=== PATIENT | male | born 1960 | race Caucasian/White ===

== ENCOUNTER 2016-08-21 13:56 | Emergency (ER) | payer MEDICAID, OTHER ==
--- NOTE | 2016-08-21 14:03 | ER Document Report ---
ED Medical Screen (RME) - General Stated Complaint: BODY PAIN Time seen by provider: 14:00 Notes: Patient complains of fever, headache, body aches since yesterday. Patient denies nausea or vomiting. Patient is HIV positive. Patient also has a history of COPD. I have greeted and performed a rapid initial assessment of this patient. A comprehensive ED assessment and evaluation of the patient, analysis of test results and completion of the medical decision making process will be conducted by additional ED providers. TRAVEL OUTSIDE OF THE [place] IN LAST 30 DAYS: No - Related Data Allergies/Adverse Reactions: Penicillins Adverse Reaction (Verified 05/21/15 07:58) convulsions Past Medical History Pulmonary Medical History: Reports: Hx Asthma, Hx Bronchitis Past Surgical History: Reports: Hx Abdominal Surgery - left side hernia 2009 - Immunizations Hx Diphtheria, Pertussis, Tetanus Vaccination: Yes
[2016-08-21 14:55] LABS: ABSOLUTE BASOPHILS # (AUTO) 0.1 10^3/uL (0.0-0.2); ABSOLUTE LYMPHOCYTES (AUTO) 1.9 10^3/uL (0.5-4.7); BASOPHILS % (AUTO) 1.3 % (0-2); HEMATOCRIT 43.1 % (37.9-51.0); HEMOGLOBIN 14.8 g/dL (13.5-17.0); HGB HCT DIFFERENCE 1.3; LYMPHOCYTES % (AUTO) 27.1 % (13-45); MEAN CORPUSCULAR HEMOGLOBIN 31.3 pg (27.0-33.4); MEAN CORPUSCULAR HGB CONC 34.4 g/dL (32.0-36.0); MEAN CORPUSCULAR VOLUME 91 fl (80-97); MONOCYTES % (AUTO) 14.5 % (3-13); RED BLOOD COUNT 4.75 10^6/uL (4.35-5.55); RED CELL DISTRIBUTION WIDTH 13.7 % (11.5-14.0); SEGMENTED NEUTROPHILS % (AUTO) 57.1 % (42-78)
[2016-08-21 15:01] LABS: APPEARANCE,URINE SLIGHTLY-CLOUDY; BILIRUBIN,URINE NEGATIVE (NEGATIVE); GLUCOSE, URINE NEGATIVE (NEGATIVE); KETONES,URINE TRACE mg/dL (NEGATIVE); LEUKOCYTE ESTERASE,URINE NEGATIVE (NEGATIVE); NITRITE,URINE NEGATIVE (NEGATIVE); PROTEIN,URINE NEGATIVE (NEGATIVE); URINE SPECIFIC GRAVITY 1.023; UROBILINOGEN,URINE NEGATIVE mg/dL (<2.0)
[2016-08-21 15:21] LABS: ALANINE AMINOTRANSFERASE 32 U/L (21-72); ALBUMIN 4.5 g/dL (3.5-5.0); ALKALINE PHOSPHATASE 58 U/L (38-126); ANION GAP 11 (5-19); ASPARTATE AMINO TRANSFERASE 29 U/L (17-59); BILIRUBIN,TOTAL 0.4 mg/dL (0.2-1.3); BLOOD UREA NITROGEN 15 mg/dL (7-20); CALCIUM 9.4 mg/dL (8.4-10.2); CARBON DIOXIDE 22 mmol/L (22-30); CHLORIDE 103 mmol/L (98-107); CREATININE RESULT 1.05 mg/dL (0.52-1.25); GLUCOSE 91 mg/dL (75-110); POTASSIUM 4.6 mmol/L (3.6-5.0); SODIUM 135.8 mmol/L (137-145)
[2016-08-21] MEDS ORDERED: BENZONATATE 100 MG CAPSULE PO ONE (16:02)
--- NOTE | 2016-08-21 16:02 | ER Document Report ---
ED General - General Chief Complaint: Flu Symptoms Stated Complaint: BODY PAIN Mode of Arrival: Ambulatory Information source: Patient Notes: Patient presents to the emergency department with complaints of headache, subjective fever, body aches nonproductive cough. He reports symptoms started yesterday. He reports he also recently learned he is HIV positive, jul 06, 2016. He does not know his CD4 count. He reports he has not been able to follow up with the clinic in [place] because he does not have $400. He reports these symptoms started last night. No other family members ill. Denies vomiting diarrhea. TRAVEL OUTSIDE OF THE [place] IN LAST 30 DAYS: No - HPI Onset: Yesterday Onset/Duration: Sudden Quality of pain: Achy Pain Level: 4 Associated symptoms: Body/muscle aches, Nonproductive cough, Fever Exacerbated by: Denies Relieved by: Denies Similar symptoms previously: No Recently seen / treated by doctor: No - Related Data Allergies/Adverse Reactions: Penicillins Adverse Reaction (Verified 05/21/15 07:58) convulsions Past Medical History - General Information source: Patient - Social History Smoking Status: Current Every Day Smoker Cigarette use (# per day): Yes - one pack per day Chew tobacco use (# tins/day): No Smoking Education Provided: Yes Frequency of alcohol use: None Drug Abuse: None Lives with: Family Family History: Reviewed & Not Pertinent Patient has suicidal ideation: No Patient has homicidal ideation: No Pulmonary Medical History: Reports: Hx Asthma, Hx Bronchitis, Hx COPD Renal/ Medical History: Denies: Hx Peritoneal Dialysis Infectious Medical History: Reports: Hx HIV Past Surgical History: Reports: Hx Abdominal Surgery - left side hernia 2009 - Immunizations Hx Diphtheria, Pertussis, Tetanus Vaccination: Yes Review of Systems - Review of Systems Notes: Review HPI for review of systems., All other systems negative Physical Exam - Vital signs Vitals: Temp Pulse Resp BP Pulse Ox 99.7 F 92 28 H 117/64 94 08/21/16 14:01 08/21/16 14:01 08/21/16 14:01 08/21/16 14:01 08/21/16 14:01 - Notes Notes: PHYSICAL EXAMINATION: GENERAL: Well-appearing and in no acute distress nontoxic looking, nontoxic looking, appears older than his stated age HEAD: Atraumatic, normocephalic. EYES: Pupils equal round extraocular movements intact, sclera anicteric, conjunctiva are normal. ENT: nares patent, oropharynx clear without exudates. Moist mucous membranes. NECK: Normal range of motion, supple without lymphadenopathy LUNGS: CTAB and equal. No wheezes rales or rhonchi. occasional cough noted, no product HEART: Regular rate and rhythm without murmurs ABDOMEN: Soft, no tenderness. No guarding, no rebound BACK: C/O pain when sitting up and coughing. He reports he has always had back pain, born with scoliosis, cough is irritating it more EXTREMITIES: Normal range of motion, no c/o pain NEUROLOGICAL: Cranial nerves grossly intact. Normal sensory/motor PSYCH: Normal mood, normal affect. SKIN: Warm, Dry, normal turgor Course - Re-evaluation Re-evalutation: 08/21/16 I have consulted the attending provider dr izquierdo per [facility] guidelines. No additional orders noted. Pt instructed on trent vasquez, on importance of monitoring his temp, fu with dr valles tuesday. - Vital Signs Vital signs: Temp Pulse Resp BP Pulse Ox 99.7 F 85 20 112/68 94 08/21/16 14:01 08/21/16 16:07 08/21/16 16:07 08/21/16 16:07 08/21/16 16:07 - Laboratory Result Diagrams: 08/21/16 14:17 08/21/16 14:17 Laboratory results interpreted by me: 08/21/16 08/21/16 08/21/16 14:17 14:17 14:17 Monocytes % 14.5 H Sodium 135.8 L Urine Ketones TRACE H - Diagnostic Test Radiology reviewed: Image reviewed, Reports reviewed - IMPRESSION: NO SIGNIFICANT RADIOGRAPHIC FINDING IN THE CHEST Discharge - Discharge Clinical Impression: Cough, Body aches Headache Qualifiers: Headache type: unspecified Headache chronicity pattern: acute headache Intractability: not intractable Qualified Code(s): R51 - Headache Fever Qualifiers: Fever type: unspecified Qualified Code(s): R50.9 - Fever, unspecified Condition: Stable Disposition: HOME, SELF-CARE Instructions: Acetaminophen, Fever ([facility]), Tessalon Perles ([facility]) Additional Instructions: *You have been evaluated for flu like symptoms today, cough, fever, headache *Increase fluid intake *Take medication as prescribed for cough *Monitor your temperature, take Tylenol as indicated *Follow up with Dr Valles within 3 days for recheck *Return to ED for worsening condition, changes, needs Prescriptions: Benzonatate [Tessalon Perles 100 mg Capsule] 100 mg PO ASDIR PRN #40 capsule PRN Reason: Forms: Smoking Cessation Education Referrals: PHOEBE SALGUERO MD [Primary Care Provider] - Follow up as needed
[2016-08-21 16:08] VITALS: BP 112/68
== END 2016-08-21 16:12 | disposition home or self-care (01) ==
LOC: ER 13:56
DX: M79.1 Myalgia (principal); R50.9 Fever, unspecified; R51 Headache; R05 Cough; J44.9 Chronic obstructive pulmonary disease, unspecified; J45.909 Unspecified asthma, uncomplicated; F17.210 Nicotine dependence, cigarettes, uncomplicated; M41.9 Scoliosis, unspecified; M54.9 Dorsalgia, unspecified; Z21 Asymptomatic human immunodeficiency virus [HIV] infection status
CPT/HCPCS: 36415; 71020; 80053; 81001; 85025; 87804; 99283

== ENCOUNTER 2017-08-18 15:53 | Emergency (ER) | payer OTHER ==
[2017-08-18] MEDS ORDERED: IBUPROFEN 800 MG TABLET PO ONE (16:27)
--- NOTE | 2017-08-18 17:08 | ER Document Report ---
ED Extremity Problem, Lower - General Chief Complaint: Foot Injury Stated Complaint: LEFT 2ND DIGIT TOE INJURY Time Seen by Provider: 08/18/17 16:26 Mode of Arrival: Wheelchair Information source: Patient Notes: 57-year-old male presents to ED for complaint of pain to the second toe on the left foot. He states he dropped a glass rack on his toe this morning at work he works at [employer]. Toe is bruised and swollen and very tender to touch. TRAVEL OUTSIDE OF THE [place] IN LAST 30 DAYS: No - HPI Patient complains to provider of: Injury, Pain, Swelling Location: 2nd Toe Occurred: This morning Where: Public place, Work Quality of pain: Sharp, Throbbing Severity: Severe Pain Level: 5 Context: Crush Recent injury: Yes Associated symptoms: Painful ambulation Exacerbated by: Movement, Walking Relieved by: Elevation, Rest - Related Data Allergies/Adverse Reactions: Penicillins Adverse Reaction (Verified 05/21/15 07:58) convulsions Past Medical History - General Information source: Patient - Social History Smoking Status: Current Every Day Smoker Cigarette use (# per day): Yes - Pack per day Chew tobacco use (# tins/day): No Smoking Education Provided: Yes - 4 minutes Frequency of alcohol use: None Drug Abuse: None Occupation: Cook at [employer] Lives with: Family Family History: Arthritis, CAD, COPD, DM, Hyperlipidemia, Hypertension, Malignancy. denies: CVA, Thyroid Disfunction Patient has suicidal ideation: No Patient has homicidal ideation: No - Past Medical History Cardiac Medical History: Reports: None Pulmonary Medical History: Reports: Hx Asthma, Hx Bronchitis, Hx COPD EENT Medical History: Reports: None Neurological Medical History: Reports: None Endocrine Medical History: Reports: None Renal/ Medical History: Reports: None Malignancy Medical History: Reports None GI Medical History: Reports: None Musculoskeltal Medical History: Reports Hx Musculoskeletal Trauma Skin Medical History: Reports None Psychiatric Medical History: Reports: None Traumatic Medical History: Reports: None Infectious Medical History: Reports: Hx HIV Past Surgical History: Reports: Hx Inguinal Hernia - Bilateral inguinal hernia - Immunizations Immunizations up to date: Yes Hx Diphtheria, Pertussis, Tetanus Vaccination: Yes Review of Systems - Review of Systems Constitutional: No symptoms reported EENT: No symptoms reported Cardiovascular: No symptoms reported Respiratory: No symptoms reported Gastrointestinal: No symptoms reported Genitourinary: No symptoms reported Male Genitourinary: No symptoms reported Musculoskeletal: Other - left 2nd to bruised swelling painful crushed Skin: Change in color - eccymosis to 2nd toe left foot Hematologic/Lymphatic: No symptoms reported Neurological/Psychological: No symptoms reported -: Yes All other systems reviewed and negative Physical Exam - Vital signs Vitals: Temp Pulse Resp BP Pulse Ox 99.1 F 92 16 115/64 90 L 08/18/17 16:00 08/18/17 16:00 08/18/17 16:00 08/18/17 16:00 08/18/17 16:00 Interpretation: Normal - General General appearance: Appears well, Alert - HEENT Head: Normocephalic, Atraumatic Eyes: Normal Pupils: PERRL - Respiratory Respiratory status: No respiratory distress Chest status: Nontender Breath sounds: Normal Chest palpation: Normal - Cardiovascular Rhythm: Regular Heart sounds: Normal auscultation Murmur: No - Abdominal Inspection: Normal Distension: No distension Bowel sounds: Normal Tenderness: Nontender Organomegaly: No organomegaly - Back Back: Normal, Nontender - Extremities General upper extremity: Normal inspection, Nontender, Normal color, Normal ROM , Normal temperature General lower extremity: Normal temperature. No: Pascale's sign Foot: Tender - left 2nd toe, Ecchymosis - left 2nd toe, Edema - left 2nd toe, Metatarsal compress. pain - left 2nd toe, No evidence of FB, Unable to bear weight - Due to pain in left 2nd toe. No: Abrasion, Deformity, Instability, Laceration, Nail injury, Navicular tenderness, Puncture wound, Tender 5th metatarsal - Neurological Neuro grossly intact: Yes Cognition: Normal Orientation: AAOx4 Estefani Coma Scale Eye Opening: Spontaneous [place] Coma Scale Verbal: Oriented Estefani Coma Scale Motor: Obeys Commands [place] Coma Scale Total: 15 Speech: Normal Motor strength normal: LUE, RUE, LLE, RLE Sensory: Normal - Psychological Associated symptoms: Normal affect, Normal mood - Skin Skin Temperature: Warm Skin Moisture: Dry Skin Color: Normal, Ecchymosis - left 2nd toe Course - Re-evaluation Re-evalutation: 08/18/17 17:09 Patient treated with elevation ice and ibuprofen while waiting for the x-ray reports. 08/18/17 17:35 X-ray shows a nondisplaced fracture of the proximal phalanx of the second toe on the left foot. I have moo taped his toes and placed in a postop shoe and given crutches. He will also be given a Latrobe dispense pack for his pain. He will be instructed to take ibuprofen for lesser pain and Latrobe for the more severe pain. Patient was instructed to follow-up with orthopedics. - Vital Signs Vital signs: Temp Pulse Resp BP Pulse Ox 98.8 F 72 18 111/62 95 08/18/17 17:58 08/18/17 17:58 08/18/17 17:58 08/18/17 17:58 08/18/17 17:58 - Diagnostic Test Radiology reviewed: Image reviewed, Reports reviewed Procedures - Immobilization Left Foot Time completed: 18:05 Pre-Proc Neuro Vasc Exam: Normal Immobilizer type: Crutches, Post-op shoe, Other - Moo tape toe Performed by: PCT Post-Proc Neuro Vasc Exam: Normal Alignment checked and good: Yes Discharge - Discharge Clinical Impression: Fracture of second toe, left, closed Qualifiers: Encounter type: initial encounter Qualified Code(s): S92.502A - Displaced unspecified fracture of left lesser toe(s), initial encounter for closed fracture Condition: Stable Disposition: HOME, SELF-CARE Additional Instructions: Fractured Toe You have fractured your toe. Although this fracture doesn't need a cast or splint, emergency evaluation was needed to assess the straightness of the bones and joints. Reduction ("setting") is necessary for toe fractures which are crooked or twisted. A toe fracture will heal in about three weeks. Usually, the fractured toe is taped to the next toe. The second toe acts as a moving splint to protect the broken one. Ice and elevation help during the first 48 hours. You may need crutches at first if walking is painful. When you begin walking, be careful NOT to do things that hurt. If weight bearing is not comfortable within a few days, you may require a special shoe, walking boot, or cast. Call the doctor or return at once if severe swelling, severe pain, or numbness develop in the toe, or if you suspect you may have re-injured it. Post-Op Shoe You are to use a "post-op shoe," sometimes also called a "bunnion shoe." This shoe helps protect minor fractures, sprains, and other injuries of the toes or foot. You may remove the shoe for bathing. Walk carefully. If you're feeling pain, put less weight on the foot, take smaller steps, or use a cane. If you have a new injury, you may need to use crutches for the first couple of days. If pain still prevents walking after a few days, contact the doctor. If there's unexpected pain in your foot, if blisters or sore spots develop , or if the shoe is physically coming apart, return at once. Remember that you' re welcome to come in at any time to have the fit of the shoe checked and adjusted. USE OF CRUTCHES: The doctor has recommended that you not bear weight at this time. You will need to use crutches. Adjust the crutches so the tops come to about two inches under the armpit while you are standing upright. Use your hands -- not your armpits -- to support your weight. To get into a chair, support yourself with one crutch on the injured side. Hold the chair with the other hand, then lower yourself while putting all your weight on the good leg. Going up stairs is `good leg up, step up, then bring up crutches and bad leg.' Down stairs is `bad leg and crutches down, then bring good leg down.' If you develop numbness or swelling in an arm or hand, you are using the crutches incorrectly. Return if you are having any problems with the crutches. ICE & ELEVATION: Apply ice packs frequently against the painful area. Many different schedules are recommended, such as "20 minutes on, 20 minutes off" or "one hour ice, two hours rest." If you need to work, you may need to go longer between ice treatments. You should plan to have the area ice packed AT LEAST one- fourth of the time. The ice should be applied over the wrap, tape, or splint, or over a layer of cloth -- not directly against the skin. Some ice bags have a built-in cloth and can be put directly on the skin. Your injured part should be elevated as much as possible over the next 48 hours. Try to keep the injury above the level of the heart. Avoid use of the injured area. Elevation and rest will decrease the swelling. USE OF [id number] IBUPROFEN: Ibuprofen (Advil, Nuprin, Medipren, Motrin IB) is a medication for fever and pain control. In addition, it has anti- inflammatory effects which may be beneficial, especially in the treatment of injuries. It's best to take ibuprofen with food. Persons with ulcer disease or allergy to aspirin should notify their physician of this before taking ibuprofen. Ibuprofen can be given every four to six hours, for a total of four doses daily. Age Pain or fever dose Antiinflammatory dose 6-8 yr 200 mg (1 tab) 200 mg (1 tab) 9-11 yr 200 mg (1 tab) 200-400 mg (1-2 tab) 11-14 yr 200-400 mg (1-2 tab) 400 mg (2 tab) 15-adult 400 mg (2 tab) 600 mg (3 tab) ORAL NARCOTIC MEDICATION: You have been given a Latrobe dispense pack for pain control. This medication is a narcotic. It's best taken with food, as nausea can result if taken on an empty stomach. Don't operate machinery or drive within six hours of taking this medication. Do not combine this medicine with alcohol, or with any medication which can cause sedation (such as cold tablets or sleeping pills) unless you get permission from the physician. Narcotics tend to cause constipation. If possible, drink plenty of fluids and eat a diet high in fiber and fruits. Please be aware that prescription narcotics also have the potential for abuse. People become addicted to these medications because of the general sense of wellbeing that they induce. This feeling along with a significant reduction in tension, anxiety, and aggression provides a stimulating seductive quality to these drugs. Once your pain is under control, we encourage you to discard your unused narcotics. Please take your Latrobe for severe pain but take your ibuprofen for lesser pains. Elevation and ice should help your pain and reduce your requirement for pain medication FOLLOW-UP CARE: If you have been referred to a physician for follow-up care, call the physician s office for an appointment as you were instructed or within the next two days. If you experience worsening or a significant change in your symptoms, notify the physician immediately or return to the Emergency Department at any time for re-evaluation. Forms: Smoking Cessation Education, Return to Work Referrals: RITA ANTHONY MD [ACTIVE STAFF] - Follow up as needed
--- NOTE | 2017-08-18 17:23 | RADIOLOGY REPORT (SQ) ---
EXAM DESCRIPTION: FOOT LEFT COMPLETE COMPLETED DATE/TIME: 08/18/2017 5:09 pm REASON FOR STUDY: injured 2nd toe COMPARISON: None. NUMBER OF VIEWS: Three views. TECHNIQUE: AP, lateral and oblique radiographic images acquired of the left foot. LIMITATIONS: None. FINDINGS: MINERALIZATION: Normal. BONES: A lateral view there is suggestion of fracture involving the distal aspect of the second proxi mal phalanx however this is not clearly visualized on the other images. No other fractures are ident ified. Small calcaneal spur at the insertion the plantar aponeurosis. JOINTS: No effusions. SOFT TISSUES: No soft tissue swelling. No foreign body. OTHER: No other significant finding. IMPRESSION: Possible nondisplaced fracture involving the second proximal phalanx seen only on the la teral view. TECHNICAL DOCUMENTATION: JOB ID: [id number] [employer]- All Rights Reserved
[2017-08-18 17:59] VITALS: BP 111/62
[2017-08-18] MEDS ORDERED: HYDROCODONE/ACETAMINOPHEN 5-325 MG (6 TAB/ER DISP) PO PRN (18:04)
== END 2017-08-18 18:10 | disposition home or self-care (01) ==
LOC: ER 15:53
DX: S92.502A Displaced unspecified fracture of left lesser toe(s), initial encounter for closed fracture (principal); M79.672 Pain in left foot; M79.89 Other specified soft tissue disorders; W22.8XXA Striking against or struck by other objects, initial encounter; F17.210 Nicotine dependence, cigarettes, uncomplicated
CPT/HCPCS: 99283; 99406

== ENCOUNTER → 2017-11-17 | Outpatient (CLI) | payer OTHER ==
[2017-11-17 12:42] LABS: ABSOLUTE BASOPHILS # (AUTO) 0.1 10^3/uL (0.0-0.2); ABSOLUTE EOSINOPHILS # (AUTO) 0.1 10^3/uL (0.0-0.6); ABSOLUTE LYMPHOCYTES (AUTO) 2.9 10^3/uL (0.5-4.7); ABSOLUTE MONOCYTES (AUTO) 0.7 10^3/uL (0.1-1.4); BASOPHILS % (AUTO) 1.4 % (0-2); EOSINOPHILS % (AUTO) 1.6 % (0-6); HEMATOCRIT 43.3 % (37.9-51.0); HEMOGLOBIN 14.6 g/dL (13.5-17.0); LYMPHOCYTES % (AUTO) 36.9 % (13-45); MEAN CORPUSCULAR HEMOGLOBIN 33.5 pg (27.0-33.4); MEAN CORPUSCULAR HGB CONC 33.7 g/dL (32.0-36.0); MEAN CORPUSCULAR VOLUME 100 fl (80-97); MONOCYTES % (AUTO) 8.4 % (3-13); PLATELET COUNT 314 10^3/uL (150-450); RED BLOOD COUNT 4.35 10^6/uL (4.35-5.55); RED CELL DISTRIBUTION WIDTH 13.8 % (11.5-14.0); SEGMENTED NEUTROPHILS % (AUTO) 51.7 % (42-78); TOTAL CELLS COUNTED % (AUTO) 100 %; WHITE BLOOD COUNT 7.8 10^3/uL (4.0-10.5)
[2017-11-17 13:02] LABS: ALANINE AMINOTRANSFERASE 20 U/L (21-72); ALBUMIN 4.1 g/dL (3.5-5.0); ALKALINE PHOSPHATASE 48 U/L (38-126); ANION GAP 9 (5-19); ASPARTATE AMINO TRANSFERASE 22 U/L (17-59); BILIRUBIN,DIRECT 0.3 mg/dL (0.0-0.4); BILIRUBIN,TOTAL 0.3 mg/dL (0.2-1.3); BLOOD UREA NITROGEN 12 mg/dL (7-20); CALCIUM 9.8 mg/dL (8.4-10.2); CARBON DIOXIDE 28 mmol/L (22-30); CHLORIDE 106 mmol/L (98-107); GLUCOSE 90 mg/dL (75-110); POTASSIUM 4.4 mmol/L (3.6-5.0); SODIUM 143.1 mmol/L (137-145); TOTAL PROTEIN 6.6 g/dL (6.3-8.2)
== END ==
LOC: CCC 11:39
DX: Z00.00 Encounter for general adult medical examination without abnormal findings (principal)
CPT/HCPCS: 36415; 80053; 83036; 84443; 85025

== ENCOUNTER 2018-01-13 17:37 | Emergency (ER) | payer SELFPAY ==
[2018-01-13] MEDS ORDERED: IPRATROPIUM/ALBUTEROL 0.5-2.5 MG/3 ML AMPUL NEB ONE (18:07)
[2018-01-13] MEDS ORDERED: PREDNISONE 20 MG TABLET PO ONE (18:07)
--- NOTE | 2018-01-13 18:12 | ER Document Report ---
ED Medical Screen (RME) - General Chief Complaint: Chest Pain Stated Complaint: CHEST PAIN, SHORTNESS OF BREATH Time Seen by Provider: 01/13/18 18:00 Notes: RAPID MEDICAL EVALUATION DISCLOSURE I have seen this patient as part of a Rapid Medical Evaluation and, if applicable, placed any initially appropriate orders. The patient will be seen and fully evaluated, including a full history and physical exam, by a provider ( in Main ED or Fast Track) when a room becomes available. 57-year-old male PMH asthma here with complaints of shortness of breath chest tightness cough ongoing for the past 5-6 days. He has had progressively worsening symptoms and has been using his inhalers with minimal relief. He does not have a nebulizer machine at home. EXAM Mild end expiratory wheezes Moderate decrease in aeration throughout Mild accessory muscle use RRR TRAVEL OUTSIDE OF THE [place] IN LAST 30 DAYS: No - Related Data Allergies/Adverse Reactions: Penicillins Adverse Reaction (Verified 01/13/18 17:38) convulsions Past Medical History - Social History Chew tobacco use (# tins/day): No Frequency of alcohol use: None Drug Abuse: None Pulmonary Medical History: Reports: Hx Asthma, Hx Bronchitis, Hx COPD Renal/ Medical History: Denies: Hx Peritoneal Dialysis Musculoskeltal Medical History: Reports Hx Musculoskeletal Trauma Psychiatric Medical History: Reports: Hx Bipolar Disorder - and depression Infectious Medical History: Reports: Hx HIV Past Surgical History: Reports: Hx Abdominal Surgery - hernia repair x2, Hx Inguinal Hernia - Bilateral inguinal hernia - Immunizations Immunizations up to date: Yes Hx Diphtheria, Pertussis, Tetanus Vaccination: Yes Physical Exam - Vital signs Vitals: Temp Pulse Resp BP Pulse Ox 99.7 F 106 H 22 H 131/63 H 88 L 01/13/18 17:50 01/13/18 17:50 01/13/18 17:50 01/13/18 17:50 01/13/18 17:50 Course - Vital Signs Vital signs: Temp Pulse Resp BP Pulse Ox 99.7 F 106 H 22 H 131/63 H 88 L 01/13/18 17:50 01/13/18 17:50 01/13/18 17:50 01/13/18 17:50 01/13/18 17:50 Doctor's Discharge - Discharge Referrals: [facility] [Primary Care Provider] - Follow up as needed
--- NOTE | 2018-01-13 18:32 | RADIOLOGY REPORT (SQ) ---
EXAM DESCRIPTION: CHEST SINGLE VIEW COMPLETED DATE/TIME: 01/13/2018 6:22 pm REASON FOR STUDY: sob cp COMPARISON: 08/21/2016 EXAM PARAMETERS: NUMBER OF VIEWS: One view. TECHNIQUE: Single frontal radiographic view of the chest acquired. RADIATION DOSE: NA LIMITATIONS: None. FINDINGS: LUNGS AND PLEURA: The lungs are hyperexpanded. There is no infiltrate or effusion. There is no mass. MEDIASTINUM AND HILAR STRUCTURES: No masses. Contour normal. HEART AND VASCULAR STRUCTURES: Heart normal in size. Normal vasculature. BONES: No acute findings. HARDWARE: None in the chest. OTHER: No other significant finding. IMPRESSION: Chronic lung changes with no acute cardiopulmonary disease. TECHNICAL DOCUMENTATION: JOB ID: [id number] [employer]- All Rights Reserved Reading location - IP/workstation name: [email or web address]
[2018-01-13 18:35] LABS: HEMATOCRIT 39.1 % (37.9-51.0); HEMOGLOBIN 13.3 g/dL (13.5-17.0); MEAN CORPUSCULAR HEMOGLOBIN 33.2 pg (27.0-33.4); MEAN CORPUSCULAR VOLUME 98 fl (80-97); PLATELET COUNT 408 10^3/uL (150-450); RED CELL DISTRIBUTION WIDTH 13.7 % (11.5-14.0); WHITE BLOOD COUNT 17.5 10^3/uL (4.0-10.5)
[2018-01-13 18:48] LABS: ALANINE AMINOTRANSFERASE 28 U/L (21-72); ALBUMIN 3.8 g/dL (3.5-5.0); ALKALINE PHOSPHATASE 64 U/L (38-126); ANION GAP 10 (5-19); ASPARTATE AMINO TRANSFERASE 19 U/L (17-59); BILIRUBIN,DIRECT 0.3 mg/dL (0.0-0.4); BILIRUBIN,TOTAL 0.5 mg/dL (0.2-1.3); BLOOD UREA NITROGEN 12 mg/dL (7-20); CALCIUM 9.2 mg/dL (8.4-10.2); CARBON DIOXIDE 24 mmol/L (22-30); CHLORIDE 108 mmol/L (98-107); GLUCOSE 159 mg/dL (75-110); SODIUM 142.2 mmol/L (137-145); TOTAL PROTEIN 6.4 g/dL (6.3-8.2)
[2018-01-13 19:17] LABS: ABSOLUTE LYMPHOCYTES# (MANUAL) 1.8 10^3/uL (0.5-4.7); ABSOLUTE MONOCYTES # (MANUAL) 1.4 10^3/uL (0.1-1.4); ABSOLUTE NEUTROPHILS# (MANUAL) 14.4 10^3/uL (1.7-8.2); BAND NEUTROPHILS % (MANUAL) 1 % (3-5); BASOPHILS % (MANUAL) 0 % (0-2); EOSINOPHILS % (MANUAL) 0 % (0-6); LYMPHOCYTES % (MANUAL) 10 % (13-45); MONOCYTES % (MANUAL) 8 % (3-13); SEGMENTED NEUTROPHILS % (MAN) 81 % (42-78); TOTAL CELLS COUNTED 100
[2018-01-13 19:20] LABS: PLATELET CLUMPS PRESENT; PLATELET COMMENT ADEQUATE; POIKILOCYTOSIS 1+; POLYCHROMASIA SLIGHT; SCHISTOCYTES SLIGHT; TEAR DROP CELLS 1+; TOXIC GRANULATION SLIGHT; TOXIC VACUOLATION PRESENT
[2018-01-13 19:21] LABS: PLATELET LARGE PRESENT
[2018-01-13] MEDS ORDERED: NORMAL SALINE 1000 ML 1,000 ML IV ONE (19:46)
[2018-01-13] MEDS ORDERED: BENZONATATE 100 MG CAPSULE PO ONE (19:48)
--- NOTE | 2018-01-13 19:50 | ER Document Report ---
ED General - General Chief Complaint: Chest Pain Stated Complaint: CHEST PAIN, SHORTNESS OF BREATH Time Seen by Provider: 01/13/18 18:00 Notes: The patient is a 57-year-old male with a past medical history of HIV, hypertension, chronic tobacco abuse who presents with 5 days of shortness of breath, coughing and feeling like he is having an asthma exacerbation. The patient reports that he has been using his albuterol inhaler at home with minimal to no relief. He states that coughing worsens his symptoms. He states this feels similar to prior asthma exacerbations that he has had in the past. He has not seen his general doctor regarding today's concerns. He denies fever or constitutional symptoms. He denies any history of a low CD4 count, stating the last CD4 check was "normal" and that his viral load was undetectable. TRAVEL OUTSIDE OF THE [place] IN LAST 30 DAYS: No - Related Data Allergies/Adverse Reactions: Penicillins Adverse Reaction (Verified 01/13/18 17:38) convulsions Past Medical History - General Information source: Patient - Social History Smoking Status: Current Every Day Smoker Cigarette use (# per day): Yes - 1 pack/day Chew tobacco use (# tins/day): No Smoking Education Provided: Yes - Smoking cessation counseling was provided for 4 minutes at the bedside Frequency of alcohol use: None Drug Abuse: None Lives with: Spouse/Significant other Family History: Arthritis, CAD, COPD, DM, Hyperlipidemia, Hypertension, Malignancy. denies: CVA, Thyroid Disfunction Patient has suicidal ideation: No Patient has homicidal ideation: No Pulmonary Medical History: Reports: Hx Asthma, Hx Bronchitis, Hx COPD Renal/ Medical History: Denies: Hx Peritoneal Dialysis Musculoskeltal Medical History: Reports Hx Musculoskeletal Trauma Psychiatric Medical History: Reports: Hx Bipolar Disorder - and depression Infectious Medical History: Reports: Hx HIV Past Surgical History: Reports: Hx Abdominal Surgery - hernia repair x2, Hx Inguinal Hernia - Bilateral inguinal hernia - Immunizations Immunizations up to date: Yes Hx Diphtheria, Pertussis, Tetanus Vaccination: Yes Review of Systems - Review of Systems Notes: Constitutional: Negative for fever. HENT: Negative for sore throat. Eyes: Negative for visual changes. Cardiovascular: Negative for chest pain. Respiratory: Positive for cough and shortness of breath Gastrointestinal: Negative for abdominal pain, vomiting or diarrhea. Genitourinary: Negative for dysuria. Musculoskeletal: Negative for back pain. Skin: Negative for rash. Neurological: Negative for headaches, weakness or numbness. 10 point ROS negative except as marked above and in HPI. Physical Exam - Vital signs Vitals: Temp Pulse Resp BP Pulse Ox 99.7 F 106 H 22 H 131/63 H 88 L 01/13/18 17:50 01/13/18 17:50 01/13/18 17:50 01/13/18 17:50 01/13/18 17:50 Interpretation: Tachycardic, Hypoxic Notes: PHYSICAL EXAMINATION: GENERAL: Appears older than stated age but in no acute distress HEAD: Atraumatic, normocephalic. EYES: Pupils equal round and reactive to light, extraocular movements intact, sclera anicteric, conjunctiva are normal. ENT: nares patent, oropharynx clear without exudates. Moist mucous membranes. NECK: Normal range of motion, supple without lymphadenopathy LUNGS: Appropriate air movement throughout, no retractions or distress. Scattered rales throughout. No significant wheezing. HEART: Regular tachycardia without murmurs ABDOMEN: Soft, nontender, normoactive bowel sounds. No guarding, no rebound. No masses appreciated. EXTREMITIES: Normal range of motion, no pitting or edema. No cyanosis. NEUROLOGICAL: No focal neurological deficits. Moves all extremities spontaneously and on command. PSYCH: Normal mood, normal affect. SKIN: Warm, Dry, normal turgor, no rashes or lesions noted. Course - Re-evaluation Re-evalutation: 01/13/18 19:48 Patient presents with 5 days of progressively worsening cough, shortness of breath, as well as feeling generally unwell. In triage he was given several duo nebulizers without any significant improvement of his symptoms. Interestingly has lung examination does not show any wheezing, more consistent with crackles throughout. Chest x-ray shows what is described as chronic lung changes of the patient denies any known chronic lung history. The patient does have a known history of HIV although states that his viral load is undetectable and medicine 84 count was "completely normal". PCP pneumonia with therefore not make any sense in this context. His labs are notable for a leukocytosis, otherwise overall unremarkable. PE seems unlikely given clinical history although given his persistent tachycardia, hypoxemia, and absence of wheezing on examination I think it is appropriate to further evaluate this pathology and a CT of the chest can also assist in better clarification of findings on chest x -ray as the report is not consistent with the patient's history. 01/13/18 22:15 CTA of the chest does not show any evidence of an acute pulmonary embolus. The patient is now 94% on room air, 91-92% ambulating on room air. His heart rate has normalized. At this time point the clinical presentation appears overall most consistent with an acute COPD exacerbation likely secondary to a viral etiology as multiple family members have had a similar upper respiratory presentation with him the patient has been in contact. He overall feels much better. At this time will discharge with return precautions and follow-up recommendations. Verbal discharge instructions given a the bedside and opportunity for questions given. Medication warnings reviewed. Patient is in agreement with this plan and has verbalized understanding of return precautions and the need for primary care follow-up in the next 24-72 hours. - Vital Signs Vital signs: Temp Pulse Resp BP Pulse Ox 99.7 F 106 H 26 H 126/75 H 94 01/13/18 17:50 01/13/18 17:50 01/13/18 22:01 01/13/18 22:00 01/13/18 22:01 - Laboratory Result Diagrams: 01/13/18 18:11 01/13/18 18:11 Laboratory results interpreted by me: 01/13/18 01/13/18 01/13/18 18:11 18:11 21:15 WBC 17.5 H RBC 4.00 L Hgb 13.3 L MCV 98 H Seg Neuts % (Manual) 81 H Band Neutrophils % 1 L Lymphocytes % (Manual) 10 L Abs Neuts (Manual) 14.4 H VBG pH 7.45 H VBG pCO2 33.1 L Chloride 108 H Glucose 159 H - Diagnostic Test Radiology reviewed: Image reviewed, Reports reviewed Radiology results interpreted by me: 01/13/18 22:15 Chest x-ray: Interstitial scarring, no acute infiltrate Discharge - Discharge Clinical Impression: COPD exacerbation, Tobacco dependence Leukocytosis Qualifiers: Leukocytosis type: unspecified Qualified Code(s): D72.829 - Elevated white blood cell count, unspecified Acute bronchitis Qualifiers: Bronchitis organism: unspecified organism Qualified Code(s): J20.9 - Acute bronchitis, unspecified Condition: Good Disposition: HOME, SELF-CARE Additional Instructions: You were seen for a COPD exacerbation. Your symptoms improved with treatment here in the emergency department. However, it is very important that you return to the emergency department immediately if you began to have worsening difficulty breathing that does not respond to your normal home nebulizers. You are also being sent home on a five-day course of steroids that you should start taking tomorrow. Please also take the antibiotics as prescribed. Please also follow closely with your primary care physician. You should return to emergency department if you develop fever greater than 101, persistent cough, persistent vomiting, pass out, or any other symptoms that are concerning to you. Prescriptions: RX: Doxycycline Hyclate 100 mg PO BID #14 capsule RX: Prednisone [Deltasone 20 mg Tablet] 3 tab PO DAILY 5 Days tablet Referrals: [facility] [Primary Care Provider] - Follow up as needed
[2018-01-13 21:27] LABS: VENOUS BLOOD BASE EXCESS -0.9 mmol/L; VENOUS BLOOD HCO3 22.4 mmol/L (20-32); VENOUS BLOOD PCO2 33.1 mmHg (35-63); VENOUS BLOOD PH 7.45 (7.30-7.42)
--- NOTE | 2018-01-13 21:38 | RADIOLOGY REPORT (SQ) ---
EXAM DESCRIPTION: CTA CHEST COMPLETED DATE/TIME: 01/13/2018 9:24 pm REASON FOR STUDY: hypoxia, tachy, eval pe, atypical pneumonia COMPARISON: Chest radiograph TECHNIQUE: CT scan of the chest performed using helical scanning technique with dynamic intravenous contrast injection. Images reviewed with lung, soft tissue and bone windows. Reconstructed coronal and sagittal MPR images reviewed. Additional 3 dimensional post-processing performed to develop Maximal Intensity Projection images (LA P). All images stored on PACS. All CT scanners at this facility use dose modulation, iterative reconstruction, and/or weight based d osing when appropriate to reduce radiation dose to as low as reasonably achievable (ALARA). [facility]: Dose Right [facility]: CareDose [facility]: Dose Right [facility]: Teradose 4D [facility]: Technology [employer] (TUGG) CONTRAST TYPE AND DOSE: contrast/concentration: Isovue 370.00 mg/ml; Total Contrast Delivered: 48.0 ml; Total Saline Delivered: 74.0 ml Contrast bolus adequate for pulmonary arteries and aorta. RENAL FUNCTION: GFR > 60. RADIATION DOSE: CT Rad equipment meets quality standard of care and radiation dose reduction techniq ues were employed. CTDIvol: 9.9 - 14.3 mGy. DLP: 616 mGy-cm. . LIMITATIONS: None. FINDINGS: LUNGS AND PLEURA: Emphysematous changes. Apical and lower zone scarring. No effusions. AORTA AND GREAT VESSELS: No aneurysm. Contrast bolus not optimized for the aorta. HEART: No pericardial effusion. No significant coronary artery calcifications. PULMONARY ARTERIES: No emboli visualized in the main pulmonary arteries or the segmental branches. HILAR AND MEDIASTINAL STRUCTURES: No identified masses or abnormal nodes. HARDWARE: None in the chest. UPPER ABDOMEN: No significant findings. Limited exam. THYROID AND OTHER SOFT TISSUES: No masses. No adenopathy. BONES: No acute or significant finding. 3D MIPS: Confirm above findings. OTHER: No other significant finding. IMPRESSION: No pulmonary emboli. Chronic parenchymal changes. COMMENT: Quality ID # [id number]: Final reports with documentation of one or more dose reduction techniques (e.g., Automated exposure control, adjustment of the mA and/or kV according to patient size, use of iterative reconstruction technique) TECHNICAL DOCUMENTATION: JOB ID: [id number] [employer]- All Rights Reserved Reading location - IP/workstation name: [email or web address]
[2018-01-13 22:08] VITALS: BP 126/75
--- NOTE | 2018-01-14 00:20 | EKG REPORT ---
SEVERITY:- OTHERWISE NORMAL ECG - SINUS TACHYCARDIA : Confirmed by: Tracie Huitron MD 14-Jan-2018 00:20:06
[2018-01-16 14:38] LABS: % CD 4 POS LYMPH 21.1 % (30.8-58.5); % CD 8 POS LYMPH 29.1 % (12.0-35.5); ABSOLUTE CD 4 HELPER 211 /uL (359-1519); ABSOLUTE CD 8 SUPPRESSOR 291 /uL (109-897); CD BASOPHILS 0 % (Not Estab.); CD EOSINOPHILS 0 % (Not Estab.); CD MONOCYTES 7 % (Not Estab.); CD NEUTROPHILS 87 % (Not Estab.); CD4/CD8 RATIO 0.73 (0.92-3.72); MCH 33.4 pg (26.6-33.0); MCHC 31.7 g/dL (31.5-35.7); MCV 105 fL (79-97); MONOCYTES(ABSOLUTE) 1.1 x10E3/uL (0.1-0.9); NEUTROPHILS(ABSOLUTE) 13.9 x10E3/uL (1.4-7.0); PLATELETS 397 x10E3/uL (150-379); RBC 3.59 x10E6/uL (4.14-5.80); RDW 14.8 % (12.3-15.4)
== END 2018-01-13 22:42 | disposition home or self-care (01) ==
LOC: ER 17:37
DX: J44.1 Chronic obstructive pulmonary disease with (acute) exacerbation (principal); D72.829 Elevated white blood cell count, unspecified; J20.9 Acute bronchitis, unspecified; R07.9 Chest pain, unspecified; F17.210 Nicotine dependence, cigarettes, uncomplicated; B20 Human immunodeficiency virus [HIV] disease; Z88.0 Allergy status to penicillin
CPT/HCPCS: 93005; 99406; 94640; 99285; 96360; 86360; 36415; 85025; 80053; 84484; 82803; 83880; 71045; 71275; 93010; J7512; J7030; J7620

== ENCOUNTER 2018-01-15 12:11 | Inpatient (IN) | payer SELFPAY ==
--- NOTE | 2018-01-15 12:52 | ER Document Report ---
ED Medical Screen (RME) - General Chief Complaint: Shortness Of Breath Stated Complaint: SHORTNESS OF BREATH Time Seen by Provider: 01/15/18 12:47 Mode of Arrival: Wheelchair Information source: Patient, Relative Notes: 57 yr old male hx of hiv copd emphysema presents with complaints of sob, wheezing cough I have greeted and performed a rapid initial assessment of this patient. A comprehensive ED assessment and evaluation of the patient, analysis of test results and completion of the medical decision making process will be conducted by additional ED providers. PHYSICAL EXAMINATION: GENERAL: Well-appearing, well-nourished and in no acute distress. pt is on oxygen HEAD: Atraumatic, normocephalic. EYES: Pupils equal round extraocular movements intact, conjunctiva are normal. ENT: Nares patent NECK: Normal range of motion LUNGS: No respiratory distress Musculoskeletal: Normal range of motion NEUROLOGICAL: Normal speech, normal gait. PSYCH: Normal mood, normal affect. SKIN: Warm, Dry, normal turgor, no rashes or lesions noted. TRAVEL OUTSIDE OF THE [place] IN LAST 30 DAYS: No - Related Data Allergies/Adverse Reactions: Penicillins Adverse Reaction (Verified 01/13/18 17:38) convulsions Past Medical History Pulmonary Medical History: Reports: Hx Asthma, Hx Bronchitis, Hx COPD Renal/ Medical History: Denies: Hx Peritoneal Dialysis Musculoskeltal Medical History: Reports Hx Musculoskeletal Trauma Psychiatric Medical History: Reports: Hx Bipolar Disorder - and depression Infectious Medical History: Reports: Hx HIV Past Surgical History: Reports: Hx Abdominal Surgery - hernia repair x2, Hx Inguinal Hernia - Bilateral inguinal hernia - Immunizations Immunizations up to date: Yes Hx Diphtheria, Pertussis, Tetanus Vaccination: Yes Physical Exam - Vital signs Vitals: Temp Pulse Resp BP Pulse Ox 98.9 F 72 20 118/61 96 01/15/18 12:26 01/15/18 12:26 01/15/18 12:26 01/15/18 12:26 01/15/18 12:26 Course - Vital Signs Vital signs: Temp Pulse Resp BP Pulse Ox 98.9 F 72 20 118/61 96 01/15/18 12:31 01/15/18 12:31 01/15/18 12:31 01/15/18 12:31 01/15/18 12:31 Doctor's Discharge - Discharge Referrals: [facility] [Primary Care Provider] - Follow up as needed
[2018-01-15 13:39] LABS: HEMATOCRIT 39.2 % (37.9-51.0); HEMOGLOBIN 13.2 g/dL (13.5-17.0); MEAN CORPUSCULAR HEMOGLOBIN 33.5 pg (27.0-33.4); MEAN CORPUSCULAR HGB CONC 33.8 g/dL (32.0-36.0); MEAN CORPUSCULAR VOLUME 99 fl (80-97); PLATELET COUNT 401 10^3/uL (150-450); RED BLOOD COUNT 3.96 10^6/uL (4.35-5.55); WHITE BLOOD COUNT 15.1 10^3/uL (4.0-10.5)
[2018-01-15 13:50] LABS: APPEARANCE,URINE CLEAR; BILIRUBIN,URINE NEGATIVE (NEGATIVE); COLOR,URINE YELLOW; GLUCOSE, URINE NEGATIVE (NEGATIVE); KETONES,URINE NEGATIVE (NEGATIVE); LEUKOCYTE ESTERASE,URINE NEGATIVE (NEGATIVE); NITRITE,URINE NEGATIVE (NEGATIVE); PROTEIN,URINE NEGATIVE (NEGATIVE); URINE SPECIFIC GRAVITY 1.015
[2018-01-15 13:55] LABS: ALANINE AMINOTRANSFERASE 20 U/L (21-72); ALBUMIN 3.7 g/dL (3.5-5.0); ALKALINE PHOSPHATASE 62 U/L (38-126); ANION GAP 12 (5-19); ASPARTATE AMINO TRANSFERASE 19 U/L (17-59); BILIRUBIN,DIRECT 0.5 mg/dL (0.0-0.4); BILIRUBIN,TOTAL 0.5 mg/dL (0.2-1.3); BLOOD UREA NITROGEN 15 mg/dL (7-20); CALCIUM 9.9 mg/dL (8.4-10.2); CARBON DIOXIDE 24 mmol/L (22-30); CHLORIDE 109 mmol/L (98-107); GLUCOSE 132 mg/dL (75-110); POTASSIUM 4.7 mmol/L (3.6-5.0); SODIUM 145.4 mmol/L (137-145); TOTAL PROTEIN 6.4 g/dL (6.3-8.2)
[2018-01-15 14:03] LABS: ABSOLUTE LYMPHOCYTES# (MANUAL) 0.2 10^3/uL (0.5-4.7); ABSOLUTE MONOCYTES # (MANUAL) 0.6 10^3/uL (0.1-1.4); ABSOLUTE NEUTROPHILS# (MANUAL) 14.3 10^3/uL (1.7-8.2); BASOPHILS % (MANUAL) 0 % (0-2); EOSINOPHILS % (MANUAL) 0 % (0-6); LYMPHOCYTES % (MANUAL) 1 % (13-45); MONOCYTES % (MANUAL) 4 % (3-13); PLATELET CLUMPS PRESENT; PLATELET COMMENT ADEQUATE; RBC MORPHOLOGY COMMENT NORMO-CYTIC/CHROMIC; SEGMENTED NEUTROPHILS % (MAN) 95 % (42-78); TOTAL CELLS COUNTED 100
[2018-01-15] MEDS ORDERED: ALBUTEROL SULFATE 0.083% NEB 2.5 MG/3 ML AMPUL NEB ONE (14:07)
[2018-01-15] MEDS ORDERED: IPRATROPIUM BROMIDE 0.02% NEB 0.5 MG/2.5 ML AMPUL NEB PRN (14:08)
[2018-01-15 14:11] LABS: ARTERIAL BLOOD BASE EXCESS 1.5 mmol/L; ARTERIAL BLOOD H2CO3 1.07 mmol/L (1.05-1.35); ARTERIAL BLOOD HCO3 24.9 mmol/L (20-26); ARTERIAL BLOOD O2 SATURATION 98.3 % (94-98); ARTERIAL BLOOD PCO2 35.5 mmHg (35-45); ARTERIAL BLOOD PH 7.46 (7.35-7.45); ARTERIAL BLOOD PO2 111.5 mmHg (80-100)
[2018-01-15 14:12] LABS: ARTERIAL BLOOD FIO2 2
--- NOTE | 2018-01-15 14:12 | RADIOLOGY REPORT (SQ) ---
EXAM DESCRIPTION: CHEST SINGLE VIEW COMPLETED DATE/TIME: 01/15/2018 1:45 pm REASON FOR STUDY: HIV, copd , sob COMPARISON: Chest x-ray and CT chest 01/13/2018. EXAM PARAMETERS: NUMBER OF VIEWS: One view. TECHNIQUE: 2 frontal radiographic views of the chest acquired. RADIATION DOSE: NA LIMITATIONS: None. FINDINGS: LUNGS AND PLEURA: No consolidation, pneumothorax or pleural effusion. Hyperlucent lungs a re suggestive of emphysema. MEDIASTINUM AND HILAR STRUCTURES: No masses. Contour normal. HEART AND VASCULAR STRUCTURES: Heart normal in size. Normal vasculature. BONES: No acute findings. HARDWARE: None in the chest. IMPRESSION: No acute radiographic finding in the chest. Emphysema. TECHNICAL DOCUMENTATION: JOB ID: [id number] [employer]- All Rights Reserved Reading location - IP/workstation name: [email or web address]
--- NOTE | 2018-01-15 14:18 | ER Document Report ---
ED Respiratory Problem - General Mode of Arrival: Wheelchair Information source: Patient TRAVEL OUTSIDE OF THE [place] IN LAST 30 DAYS: No <SCOOTER KIMBROUGH - Last Filed: 01/15/18 14:29> <LAVONNE NGUYEN - Last Filed: 01/18/18 18:44> - General Chief Complaint: Shortness Of Breath Stated Complaint: SHORTNESS OF BREATH Time Seen by Provider: 01/15/18 12:47 Notes: Patient is a 57-year-old male with HIV that presents to the emergency department today with complaints of shortness of breath. Patient was seen here 2 days ago and "diagnosed with emphysema" and was started on doxycycline and prednisone. Patient states today when leaving [facility] he felt "febrile" and "sweaty" and had increasing shortness of breath. (SCOOTER KIMBROUGH) - Related Data Allergies/Adverse Reactions: Penicillins Adverse Reaction (Verified 01/13/18 17:38) convulsions Past Medical History - General Information source: Patient, Relative - Social History Smoking Status: Former Smoker Cigarette use (# per day): No Chew tobacco use (# tins/day): No Frequency of alcohol use: None Drug Abuse: None Lives with: Family Family History: Arthritis, CAD, COPD, DM, Hyperlipidemia, Hypertension, Malignancy Patient has suicidal ideation: No Patient has homicidal ideation: No Pulmonary Medical History: Reports: Hx Asthma, Hx Bronchitis, Hx COPD Musculoskeltal Medical History: Reports Hx Musculoskeletal Trauma Psychiatric Medical History: Reports: Hx Bipolar Disorder - and depression Infectious Medical History: Reports: Hx HIV Past Surgical History: Reports: Hx Abdominal Surgery - hernia repair x2, Hx Inguinal Hernia - Bilateral inguinal hernia - Immunizations Immunizations up to date: Yes Hx Diphtheria, Pertussis, Tetanus Vaccination: Yes <SCOOTER KIMBROUGH - Last Filed: 01/15/18 14:29> Review of Systems - Review of Systems Constitutional: See HPI, Fever - subjective EENT: No symptoms reported Cardiovascular: No symptoms reported Respiratory: See HPI, Short of breath Gastrointestinal: No symptoms reported Genitourinary: No symptoms reported Male Genitourinary: No symptoms reported Musculoskeletal: No symptoms reported Skin: No symptoms reported Hematologic/Lymphatic: No symptoms reported Neurological/Psychological: No symptoms reported -: Yes All other systems reviewed and negative <SCOOTER KIMBROUGH - Last Filed: 01/15/18 14:29> Physical Exam <SCOOTER KIMBROUGH - Last Filed: 01/15/18 14:29> <LAVONNE NGUYEN - Last Filed: 01/18/18 18:44> - Vital signs Vitals: Temp Pulse Resp BP Pulse Ox 98.9 F 72 20 118/61 96 01/15/18 12:26 01/15/18 12:26 01/15/18 12:26 01/15/18 12:26 01/15/18 12:26 - Notes Notes: Physical Exam: General: Alert, appears well. HEENT: Normocephalic. Atraumatic. PERRL. Extraocular movements intact. Oropharynx clear. Neck: Supple. Non-tender. Respiratory: No respiratory distress. Minimal wheezing throughout. Saturating at 99% on room air. Cardiovascular: Regular rate and rhythm. Abdominal: Normal Inspection. Non-tender. No distension. Normal Bowel Sounds. Back: Non-tender. No deformity or step off. Extremities: Moves all four extremities. Upper extremities: Normal inspection. Normal ROM. Lower extremities: Normal inspection. No edema. Normal ROM. Neurological: Normal cognition. AAOx4. Normal speech. Psychological: Normal affect. Normal Mood. Skin: Warm. Dry. Normal color. (SCOOTER KIMBROUGH) Course - Laboratory Result Diagrams: 01/15/18 13:13 01/15/18 13:13 <SCOOTER KIMBROUGH - Last Filed: 01/15/18 14:29> - Laboratory Result Diagrams: 01/17/18 05:22 01/15/18 13:13 - Diagnostic Test Radiology reviewed: Image reviewed - NAD - EKG Interpretation by Vt EKG shows normal: Sinus rhythm Rate: Normal Rhythm: NSR <LAVONNE NGUYEN - Last Filed: 01/18/18 18:44> - Re-evaluation Re-evalutation: 01/15/18 14:46 Patient found to have an absolute lymphocytic count of 200 compared to 1803 days ago. Will be admitted for further workup and observation. (LAVONNE NGUYEN) - Vital Signs Vital signs: Temp Pulse Resp BP Pulse Ox 98.3 F 65 12 124/66 99 01/17/18 13:13 01/17/18 13:13 01/17/18 13:13 01/17/18 13:13 01/17/18 13:13 - Laboratory Laboratory results interpreted by me: 01/15/18 01/15/18 01/15/18 13:13 13:13 13:31 WBC 15.1 H RBC 3.96 L Hgb 13.2 L MCV 99 H MCH 33.5 H Seg Neuts % (Manual) 95 H Lymphocytes % (Manual) 1 L Abs Neuts (Manual) 14.3 H Abs Lymphs (Manual) 0.2 L ABG pH ABG pO2 ABG O2 Saturation Sodium 145.4 H Chloride 109 H Glucose 132 H Direct Bilirubin 0.5 H ALT 20 L Urine Urobilinogen 2.0 H 01/15/18 13:57 WBC RBC Hgb MCV MCH Seg Neuts % (Manual) Lymphocytes % (Manual) Abs Neuts (Manual) Abs Lymphs (Manual) ABG pH 7.46 H ABG pO2 111.5 H ABG O2 Saturation 98.3 H Sodium Chloride Glucose Direct Bilirubin ALT Urine Urobilinogen Discharge <SCOOTER KIMBROUGH - Last Filed: 01/15/18 14:29> - Discharge Admitting Provider: [facility] Unit Admitted: Telemetry <LAVONNE NGUYEN - Last Filed: 01/18/18 18:44> - Discharge Condition: Fair Disposition: ADMITTED INPATIENT Scribe Attestation: 01/18/18 18:44 I personally performed the services described documentation, reviewed and edited the documentation which was dictated to describe my presence, and it accurately records my words and actions. (LAVONNE NGUYEN) Scribe Documentation - Scribe Written by Scribe:: Eufemia Montenegro, 01/15/2018 1430 acting as scribe for :: Arthur <SCOOTER KIMBROUGH - Last Filed: 01/15/18 14:29>
[2018-01-15] MEDS ORDERED: ALBUTEROL SULFATE 0.083% NEB 2.5 MG/3 ML AMPUL NEB PRN (15:25)
[2018-01-15] MEDS ORDERED: ONDANSETRON HCL INJ/PF 4 MG/2 ML SDV IV PRN (15:35)
[2018-01-15] MEDS ORDERED: ACETAMINOPHEN 650 MG SUPP.RECT PR PRN (15:35)
[2018-01-15] MEDS ORDERED: ONDANSETRON 4 MG TAB.RAPDIS PO PRN (15:35)
[2018-01-15 16:27] LABS: URINE AMPHETAMINES SCREEN NEGATIVE; URINE BARBITURATES SCREEN NEGATIVE; URINE BENZODIAZEPINES SCREEN NEGATIVE; URINE COCAINE SCREEN NEGATIVE; URINE MARIJUANA (THC) SCREEN NEGATIVE; URINE METHADONE SCREEN NEGATIVE; URINE PHENCYCLIDINE SCREEN NEGATIVE
[2018-01-15] MEDS: IPRATROPIUM/ALBUTEROL 0.5-2.5 MG/3 ML AMPUL NEB SCH ×2 (16:31→20:02)
--- NOTE | 2018-01-15 16:37 | PDOC H&P ---
History of Present Illness Admission Date/PCP: 01/15/18 15:27 [facility] Patient complains of: Dyspnea, cough, fever History of Present Illness: ISABELLE TALAMANTES is a 57 year old male with HIV, Bipolar disorder, insomnia Presented to the ER on 01/13 and again today with fever, dyspnea and cough with brownish expectoration which started approximately 10 days ago. He smokes one pack per day since the age of 8. When he was here 2 days ago he was given a prescription for doxycycline and p.o. prednisone. He returned due to lack of improvement in his symptoms. The patient requests to be a DO NOT RESUSCITATE, DO NOT INTUBATE. Past Medical History Pulmonary Medical History: Reports: Asthma, Bronchitis, Chronic Obstructive Pulmonary Disease (COPD) Psychiatric Medical History: Reports: Bipolar Disorder - and depression Infectious Medical History: Reports: HIV Social History Information Source: Patient Lives with: Family Smoking Status: Current Every Day Smoker Frequency of Alcohol Use: None Drugs: None - Advance Directive Resuscitation Status: Do Not Resuscitate Family History Family History: Arthritis, CAD, COPD, DM, Hyperlipidemia, Hypertension, Malignancy Parental Family History Reviewed: Yes Children Family History Reviewed: Yes Sibling(s) Family History Reviewed.: Yes Medication/Allergy Home Medications: Darunavir/Cobicistat [Prezcobix 800 mg-150 mg Tablet] 1 tab PO DAILY 01/13/18 Doxycycline Hyclate 100 mg PO BID #14 capsule 01/13/18 Emtricitabine/Tenofov Alafenam [Descovy 200-25 mg Tablet] 1 tab PO DAILY Prednisone [Deltasone 20 mg Tablet] 3 tab PO DAILY 5 Days tablet 01/13/18 Lamotrigine [Lamictal] 50 mg PO DAILY 01/15/18 Allergies/Adverse Reactions: Penicillins Adverse Reaction (Verified 01/13/18 17:38) convulsions Review of Systems Constitutional: PRESENT: fever(s) Eyes: ABSENT: visual disturbances Ears: ABSENT: hearing changes Nose, Mouth, and Throat: ABSENT: sore throat Cardiovascular: ABSENT: edema, orthropnea Respiratory: PRESENT: cough, dyspnea, sputum. ABSENT: hemoptysis Gastrointestinal: ABSENT: abdominal pain, diarrhea, hematochezia, vomiting Genitourinary: ABSENT: dysuria Musculoskeletal: ABSENT: joint swelling Integumentary: ABSENT: pruritus Neurological: ABSENT: focal weakness Psychiatric: PRESENT: anxiety. ABSENT: hallucinations Endocrine: ABSENT: heat intolerance Hematologic/Lymphatic: ABSENT: easy bleeding Allergic/Immunologic: ABSENT: seasonal rhinorrhea Physical Exam Vital Signs: Temp Pulse Resp BP Pulse Ox 98.9 F 72 20 124/78 98 01/15/18 12:31 01/15/18 12:31 01/15/18 16:01 01/15/18 16:01 01/15/18 16:01 General appearance: PRESENT: thin Head exam: PRESENT: normocephalic Eye exam: PRESENT: PERRLA. ABSENT: scleral icterus Ear exam: PRESENT: normal external ear exam Mouth exam: PRESENT: moist Teeth exam: PRESENT: edentulous Neck exam: ABSENT: tracheal deviation Respiratory exam: PRESENT: accessory muscle use, rhonchi, symmetrical, wheezes Cardiovascular exam: PRESENT: RRR GI/Abdominal exam: PRESENT: normal bowel sounds, soft. ABSENT: tenderness Rectal exam: PRESENT: deferred Gentrourinary exam: ABSENT: indwelling catheter Extremities exam: ABSENT: pedal edema Musculoskeletal exam: PRESENT: normal inspection Neurological exam: PRESENT: alert, awake, oriented to person, oriented to place , oriented to time, oriented to situation Psychiatric exam: PRESENT: anxious Skin exam: ABSENT: petechiae Results Impressions: Chest X-Ray 01/15/18 12:51 IMPRESSION: No acute radiographic finding in the chest. Emphysema. Assessment & Plan - Diagnosis (1) HIV (human immunodeficiency virus infection) Is this a current diagnosis for this admission?: Yes Plan: Continue outpatient medications. Check CD4 count and viral load. (2) Acute bronchitis Is this a current diagnosis for this admission?: Yes Plan: Antibiotics. Check sputum cultures. (3) COPD exacerbation Is this a current diagnosis for this admission?: Yes Plan: Supplemental oxygen, neb treatments, steroids. Check sputum culture. (4) Tobacco dependence Is this a current diagnosis for this admission?: Yes Plan: He plans to quit. Declines nicotine patch. (5) Insomnia Is this a current diagnosis for this admission?: Yes Plan: Ambien as needed - Time Time Spent: Greater than 70 Minutes - Inpatient Certification Based on my medical assessment, after consideration of the patient's comorbidities, presenting symptoms, or acuity I expect that the services needed warrant INPATIENT care.: Yes I certify that my determination is in accordance with my understanding of Medicare's requirements for reasonable and necessary INPATIENT services [42 CFR 412.3e].: Yes Medical Necessity: Failure to Improve With Outpatient Therapy, Significant Comorbidiites Make Outpatient Treatment Too Risky, Risk of Complication if Not Cared For in Hospital
[2018-01-15] MEDS ORDERED: METHYLPREDNISOLONE INJ 40 MG/1 ML SDV IV ONE (16:45)
[2018-01-15] MEDS ORDERED: LANSOPRAZOLE 15 MG TAB.RAP.DR PO ONE (16:45)
[2018-01-15] MEDS ORDERED: DOXYCYCLINE HYCLATE 100 MG TABLET PO ONE (17:00)
[2018-01-15] MEDS ORDERED: DOXYCYCLINE HYCLATE 100 MG in DEXTROSE 5%-WATER 250 ML IV ONE (17:00)
[2018-01-15] MEDS ORDERED: DOXYCYCLINE HYCLATE INJ 100 MG VIAL ONE (18:45)
--- NOTE | 2018-01-15 19:09 | EKG REPORT ---
SEVERITY:- BORDERLINE ECG - SINUS RHYTHM BORDERLINE T ABNORMALITIES, ANT-LAT LEADS : Confirmed by: Tracie Huitron MD 15-Jan-2018 19:08:58
[2018-01-15] MEDS: METHYLPREDNISOLONE INJ 40 MG/1 ML SDV IV SCH (21:34)
[2018-01-15] MEDS: ZOLPIDEM TARTRATE 5 MG TABLET PO PRN (21:34)
[2018-01-16 05:20] LABS: ABSOLUTE LYMPHOCYTES (AUTO) 0.7 10^3/uL (0.5-4.7); ABSOLUTE MONOCYTES (AUTO) 0.3 10^3/uL (0.1-1.4); ABSOLUTE NEUT (AUTO) 11.7 10^3/uL (1.7-8.2); BASOPHILS % (AUTO) 0.1 % (0-2); HEMATOCRIT 36.5 % (37.9-51.0); HEMOGLOBIN 12.3 g/dL (13.5-17.0); LYMPHOCYTES % (AUTO) 5.8 % (13-45); MEAN CORPUSCULAR HEMOGLOBIN 33.6 pg (27.0-33.4); MEAN CORPUSCULAR HGB CONC 33.8 g/dL (32.0-36.0); MEAN CORPUSCULAR VOLUME 100 fl (80-97); MONOCYTES % (AUTO) 2.3 % (3-13); PLATELET COUNT 369 10^3/uL (150-450); RED BLOOD COUNT 3.66 10^6/uL (4.35-5.55); RED CELL DISTRIBUTION WIDTH 14.4 % (11.5-14.0); SEGMENTED NEUTROPHILS % (AUTO) 91.8 % (42-78); TOTAL CELLS COUNTED % (AUTO) 100 %; WHITE BLOOD COUNT 12.7 10^3/uL (4.0-10.5)
[2018-01-16] MEDS: LANSOPRAZOLE 15 MG TAB.RAP.DR PO SCH (06:29)
[2018-01-16] MEDS: METHYLPREDNISOLONE INJ 40 MG/1 ML SDV IV SCH ×3 (06:29→21:38)
[2018-01-16] MEDS: IPRATROPIUM/ALBUTEROL 0.5-2.5 MG/3 ML AMPUL NEB SCH ×4 (08:00→19:50)
[2018-01-16] MEDS ORDERED: ONDANSETRON 4 MG TAB.RAPDIS PO PRN (09:30)
[2018-01-16] MEDS ORDERED: ONDANSETRON HCL INJ/PF 4 MG/2 ML SDV IV PRN (09:30)
[2018-01-16] MEDS ORDERED: (PENDING PHARMACY ID) (Darunavir/Cobicistat [Prezcobix 800 Mg-150 Mg Tablet] 1 TAB) PO SCH (10:00)
[2018-01-16] MEDS ORDERED: (PENDING PHARMACY ID) (Emtricitabine/Tenofov Alafenam [Descovy 200-25 Mg Tablet] 1 TAB) PO SCH (10:00)
[2018-01-16] MEDS ORDERED: DOXYCYCLINE HYCLATE 100 MG TABLET PO SCH (10:00)
[2018-01-16] MEDS: DOXYCYCLINE HYCLATE 100 MG in DEXTROSE 5%-WATER 250 ML IV SCH ×2 (10:13→21:38)
[2018-01-16] MEDS: LAMOTRIGINE 100 MG TABLET PO SCH (10:13)
[2018-01-16] MEDS: LACTOBACILLUS ACIDOPHILUS 250 MG TAB PO SCH ×2 (10:13→18:02)
--- NOTE | 2018-01-16 14:30 | Progress Note ---
Provider Note Provider Note: ID Consult Note Asked to review patient's chart. Pt not seen or examined. Mr Bhandari is a 57 year old man who presented to [facility] yesterday 01/15/18 with fever, SOB and cough with brownish sputum that started 10 days ago and that did not improve with doxycycline and PO prednisone given when pt was seen in the ED for the same 2 days ago. Pt described symptoms as being similar to prior asthma exacerbations. He also reported that his HIV viral load was undetectable when it was last checked and that his CD4 count was not low. PMH includes bipolar disorder, HIV, COPD, and tobacco abuse. Exam was notable for rhonchi and wheezes. CTA chest on 01/13 showed apical and lower lung zone scarring, no effusions, no PE. CXR on 01/13 and 01/15 showed chronic scarring and emphysematous changes but no consolidation or pleural effusion. VS on presentation - no fever. On supplemental O2 1-2 L/min. Leukocytosis 17.5k on 01/13, WBC 15.1 on 01/15, today WBC 13k. One set of blood cultures negative x 24h. The other set is in process. Impression/recommendations: acute COPD exacerbation - increased dyspnea, cough and purulent sputum production, CXR without evidence of pneumonia - doxycycline is acceptable empirically; however, if there is concern that the patient has not shown improvement with doxycycline as an outpatient, consider switching to another agent, such as PO Augmentin 875/125 BID, azithromycin 500 mg PO daily or Levaquin - doubt this is an OI, such as PJP with normal CXR and brownish sputum and good HIV control that the patient reports, but verifying this with his outpatient provider may be helpful; checking CD4 count in setting of steroid use and acute illness may give a falsely low result - duration of therapy is typically 5-7 days for most patients; would not extend therapy on basis of HIV infection - smoking cessation HIV infection - according to the patient, CD4 count has not been low and HIV viral load was suppressed when it was last checked; he should continue his home medications and f/u with his HIV care provider as scheduled an outpatient Fabio Crouch MD [facility] Infectious Diseases, pager [phone]
--- NOTE | 2018-01-16 18:10 | PDOC PROGRESS REPORT ---
Subjective Progress Note for:: 01/16/18 Subjective:: Feels somewhat better today. Continues to cough. O2 sats on room air with ambulation 89%. Reason For Visit: COPD ACUTE BRONCHITIS Physical Exam Vital Signs: Temp Pulse Resp BP Pulse Ox 98.6 F 74 24 H 123/64 96 01/16/18 17:00 01/16/18 17:00 01/16/18 17:00 01/16/18 17:00 01/16/18 17:00 Intake & Output 01/15/18 01/16/18 01/17/18 06:59 06:59 06:59 Intake Total 477 Output Total 200 500 Balance -200 -23 Weight 61.2 kg General appearance: PRESENT: no acute distress Head exam: PRESENT: normocephalic Eye exam: ABSENT: scleral icterus Ear exam: PRESENT: normal external ear exam Mouth exam: PRESENT: moist Teeth exam: PRESENT: edentulous Neck exam: ABSENT: tracheal deviation Respiratory exam: PRESENT: symmetrical, unlabored, wheezes. ABSENT: crackles Cardiovascular exam: PRESENT: RRR GI/Abdominal exam: PRESENT: normal bowel sounds, soft. ABSENT: tenderness Rectal exam: PRESENT: deferred Gentrourinary exam: ABSENT: indwelling catheter Extremities exam: ABSENT: pedal edema Neurological exam: PRESENT: alert, awake, oriented to person, oriented to place , oriented to time, oriented to situation Psychiatric exam: PRESENT: anxious Results Laboratory Results: 01/16/18 04:15 01/16/18 04:15 WBC 12.7 H RBC 3.66 L Hgb 12.3 L Hct 36.5 L MCV 100 H MCH 33.6 H MCHC 33.8 RDW 14.4 H Plt Count 369 Seg Neutrophils % 91.8 H Lymphocytes % 5.8 L Monocytes % 2.3 L Eosinophils % 0.0 Basophils % 0.1 Absolute Neutrophils 11.7 H Absolute Lymphocytes 0.7 Absolute Monocytes 0.3 Absolute Eosinophils 0.0 Absolute Basophils 0.0 Impressions: Chest X-Ray 01/15/18 12:51 IMPRESSION: No acute radiographic finding in the chest. Emphysema. Assessment & Plan - Diagnosis (1) HIV (human immunodeficiency virus infection) Is this a current diagnosis for this admission?: Yes Plan: Continue outpatient medications. CD4 count and viral load pending. (2) Acute bronchitis Is this a current diagnosis for this admission?: Yes Plan: Day 2 of doxycycline. Check sputum cultures. (3) COPD exacerbation Is this a current diagnosis for this admission?: Yes Plan: Supplemental oxygen, neb treatments, steroids. Check sputum culture. (4) Tobacco dependence Is this a current diagnosis for this admission?: Yes Plan: He plans to quit. Declines nicotine patch. (5) Insomnia Is this a current diagnosis for this admission?: Yes Plan: Ambien as needed (6) Bipolar disorder Is this a current diagnosis for this admission?: Yes Plan: Lamictal. - Time Time Spent with patient: 25-34 minutes
[2018-01-16] MEDS: ZOLPIDEM TARTRATE 5 MG TABLET PO PRN (21:38)
[2018-01-17] MEDS: METHYLPREDNISOLONE INJ 40 MG/1 ML SDV IV SCH (06:01)
[2018-01-17] MEDS: LANSOPRAZOLE 15 MG TAB.RAP.DR PO SCH (06:01)
[2018-01-17 06:13] LABS: HEMATOCRIT 35.5 % (37.9-51.0); HEMOGLOBIN 12.1 g/dL (13.5-17.0); MEAN CORPUSCULAR HEMOGLOBIN 33.3 pg (27.0-33.4); MEAN CORPUSCULAR VOLUME 98 fl (80-97); PLATELET COUNT 349 10^3/uL (150-450); RED BLOOD COUNT 3.62 10^6/uL (4.35-5.55); RED CELL DISTRIBUTION WIDTH 13.9 % (11.5-14.0)
[2018-01-17 06:45] LABS: ABSOLUTE LYMPHOCYTES# (MANUAL) 1.5 10^3/uL (0.5-4.7); ABSOLUTE MONOCYTES # (MANUAL) 0.2 10^3/uL (0.1-1.4); ABSOLUTE NEUTROPHILS# (MANUAL) 15.3 10^3/uL (1.7-8.2); BASOPHILS % (MANUAL) 0 % (0-2); EOSINOPHILS % (MANUAL) 0 % (0-6); LYMPHOCYTES % (MANUAL) 9 % (13-45); MONOCYTES % (MANUAL) 1 % (3-13); SEGMENTED NEUTROPHILS % (MAN) 90 % (42-78); TOTAL CELLS COUNTED 100
[2018-01-17 06:46] LABS: ANISOCYTOSIS SLIGHT; PLATELET COMMENT ADEQUATE; TOXIC GRANULATION SLIGHT; TOXIC VACUOLATION PRESENT
[2018-01-17] MEDS: IPRATROPIUM/ALBUTEROL 0.5-2.5 MG/3 ML AMPUL NEB SCH ×2 (08:22→11:44)
[2018-01-17] MEDS: DOXYCYCLINE HYCLATE 100 MG in DEXTROSE 5%-WATER 250 ML IV SCH (09:50)
[2018-01-17] MEDS: LACTOBACILLUS ACIDOPHILUS 250 MG TAB PO SCH (09:51)
[2018-01-17] MEDS: LAMOTRIGINE 100 MG TABLET PO SCH (09:51)
--- NOTE | 2018-01-17 12:43 | PDOC DISCHARGE SUMMARY ---
General - Admit/Disc Date/PCP Admission Date/Primary Care Provider: 01/15/18 15:27 [facility] Discharge Date: 01/17/18 - Discharge Diagnosis (1) Acute bronchitis Is this a current diagnosis for this admission?: Yes (2) COPD exacerbation Is this a current diagnosis for this admission?: Yes (3) HIV (human immunodeficiency virus infection) Is this a current diagnosis for this admission?: Yes (4) Tobacco dependence Is this a current diagnosis for this admission?: Yes (5) Insomnia Is this a current diagnosis for this admission?: Yes (6) Bipolar disorder Is this a current diagnosis for this admission?: Yes - Additional Information Resuscitation Status: Do Not Resuscitate Discharge Diet: Regular Discharge Activity: Activity As Tolerated Prescriptions: Albuterol Sulfate [Ventolin 0.083% Neb 2.5 mg/3 mL Ampul] 2.5 mg NEB RTQ3HP PRN 30 Days #30 vial.neb PRN Reason: Budesonide/Formoterol Fumarate [Symbicort 160-4.5 Mcg Inhaler] 10.2 gm IH Q12H 30 Days #1 hfa.aer.ad Omeprazole Magnesium [Prilosec Otc] 20 mg PO DAILY 20 Days #20 tablet. Home Medications: Darunavir/Cobicistat [Prezcobix 800 mg-150 mg Tablet] 1 tab PO DAILY 01/13/18 Doxycycline Hyclate 100 mg PO BID #14 capsule 01/13/18 Emtricitabine/Tenofov Alafenam [Descovy 200-25 mg Tablet] 1 tab PO DAILY Prednisone [Deltasone 20 mg Tablet] 3 tab PO DAILY 5 Days tablet 01/13/18 Lamotrigine [Lamictal] 50 mg PO DAILY 01/15/18 Albuterol Sulfate [Ventolin 0.083% Neb 2.5 mg/3 mL Ampul] 2.5 mg NEB RTQ3HP PRN 30 Days #30 vial.neb 01/17/18 Budesonide/Formoterol Fumarate [Symbicort 160-4.5 Mcg Inhaler] 10.2 gm IH Q12H 30 Days #1 hfa.aer.ad 01/17/18 Doxycycline Hyclate [Vibramycin Inj 100 mg Vial] 100 mg IV Q12 vial 01/17/18 Omeprazole Magnesium [Prilosec Otc] 20 mg PO DAILY 20 Days #20 tablet. History of Present Illness Patient complains of: Cough shortness of breath. History of Present Illness: 57 year old male with HIV, Bipolar disorder, insomnia Presented to the ER on 01/13 and again today with fever, dyspnea and cough with brownish expectoration which started approximately 10 days ago. He smokes one pack per day since the age of 8. When he was here 2 days prior to admission he was given a prescription for doxycycline and p.o. prednisone. He returned due to lack of improvement in his symptoms. The patient requested to be a DO NOT RESUSCITATE, DO NOT INTUBATE. The patient was found to have COPD exacerbation and acute bronchitis. He was treated with antibiotics, no eye wound be be out of town going to [place] for 2 weeks at the end of the week and family there but somewhat on the steroids and neb treatments. He is doing better. His CD4 count is 211. Viral load is pending. Sats are in the 90s on room air at rest and with exertion. The patient has problems with snoring and gagging at night. He will need a sleep study as an outpatient. He is also to see a structural architect. Referral has been placed for Dr. Boyce. He is to continue Symbicort, albuterol rescue inhaler as needed. He was given a prescription for a nebulizer machine and albuterol nebs. The patient will complete a steroid taper and antibiotic course as an outpatient. He is determined to quit smoking. He is stable for discharge home. Hospital Course Hospital Course: As above Physical Exam Vital Signs: Temp Pulse Resp BP Pulse Ox 98.3 F 65 12 125/63 99 01/17/18 08:14 01/17/18 11:44 01/17/18 11:44 01/17/18 08:14 01/17/18 11:44 Intake & Output 01/16/18 01/17/18 01/18/18 06:59 06:59 06:59 Intake Total 1427 250 Output Total 200 1000 Balance -200 427 250 Weight 61.2 kg 74.3 kg General appearance: PRESENT: no acute distress, thin Head exam: PRESENT: normocephalic Teeth exam: PRESENT: edentulous Respiratory exam: PRESENT: decreased breath sounds, symmetrical, unlabored Neurological exam: PRESENT: alert, awake Results Laboratory Results: 01/17/18 05:22 01/17/18 05:22 WBC 17.0 H RBC 3.62 L Hgb 12.1 L Hct 35.5 L MCV 98 H MCH 33.3 MCHC 34.0 RDW 13.9 Plt Count 349 Seg Neutrophils % Not Reportable Lymphocytes % Not Reportable Monocytes % Not Reportable Eosinophils % Not Reportable Basophils % Not Reportable Absolute Neutrophils Not Reportable Absolute Lymphocytes Not Reportable Absolute Monocytes Not Reportable Absolute Eosinophils Not Reportable Absolute Basophils Not Reportable Impressions: Chest X-Ray 01/15/18 12:51 IMPRESSION: No acute radiographic finding in the chest. Emphysema. Qualifiers - * PATIENT BEING DISCHARGED WITH ANY OF THE FOLLOWING DIAGNOSIS: No Plan Time Spent: Greater than 30 Minutes
[2018-01-17 13:14] VITALS: BP 124/66
[2018-01-18 07:14] LABS: HIV-1 RNA PCR QUANT <20 copies/mL (.)
== END 2018-01-17 13:49 | disposition home or self-care (01) | DRG 192 ==
LOC: ER 12:11 → EH 15:27 → 4S 16:53
PROVIDERS: ADMIT Internal Medicine; ATTEND Internal Medicine
DX: J44.0 Chronic obstructive pulmonary disease with (acute) lower respiratory infection (principal); J43.9 Emphysema, unspecified; J20.9 Acute bronchitis, unspecified; Z21 Asymptomatic human immunodeficiency virus [HIV] infection status; F31.9 Bipolar disorder, unspecified; G47.00 Insomnia, unspecified; Z88.0 Allergy status to penicillin; Z87.891 Personal history of nicotine dependence; Z66 Do not resuscitate; Z82.49 Family history of ischemic heart disease and other diseases of the circulatory system
CPT/HCPCS: 36415; 71045; 80053; 80307; 81001; 82803; 83735; 83880; 85025; 87040; 87536; 93005; 93010; 94640; 99285; J2920; J3490; J7060; J7620

== ENCOUNTER 2018-09-23 17:20 | Emergency (ER) | payer SELFPAY ==
[2018-09-23] MEDS ORDERED: IPRATROPIUM/ALBUTEROL 0.5-2.5 MG/3 ML AMPUL NEB ONE ×2 (18:46→20:02)
--- NOTE | 2018-09-23 18:46 | ER Document Report ---
ED Medical Screen (RME) - General Chief Complaint: Shortness Of Breath Stated Complaint: DIFFICULTY BREATHING Time Seen by Provider: 09/23/18 18:44 Primary Care Provider: [facility] [Primary Care Provider] - Follow up as needed Mode of Arrival: Ambulatory Information source: Patient, Relative, [facility] Records Notes: 58-year-old male with COPD, HIV, bipolar disorder presents with complaint of 3 days of shortness of breath, chest pressure. Patient states shortness of breath and chest pressure are worse with exertion. Patient also reports a worsening productive cough and subjective fevers. Patient denies any recent hospitalizations. I have greeted and performed a rapid initial assessment of this patient. A comprehensive ED assessment and evaluation of the patient, analysis of test results and completion of medical decision making process we will be contacted by additional ED providers. PHYSICAL EXAMINATION: Vital signs reviewed GENERAL: Well-appearing, well-nourished and in no acute distress. LUNGS: No respiratory distress Musculoskeletal: Normal range of motion NEUROLOGICAL: Normal speech, normal gait. PSYCH: Normal mood, normal affect. SKIN: Warm, Dry, normal turgor, no rashes or lesions noted. TRAVEL OUTSIDE OF THE [place] IN LAST 30 DAYS: No - HPI Onset: Other Onset/Duration: Constant Quality of pain: Pressure Severity: Moderate Associated Symptoms: Chest pain, Cough (productive), Fever - Subjective, Shortness of breath Exacerbated by: Other - Activity Relieved by: Denies Similar symptoms previously: Yes Recently seen / treated by doctor: No - Related Data Smoking: Secondhand, Cigarettes Drug Abuse: None Allergies/Adverse Reactions: Penicillins Adverse Reaction (Verified 01/13/18 17:38) convulsions Past Medical History Pulmonary Medical History: Reports: Hx Asthma, Hx Bronchitis, Hx COPD Renal/ Medical History: Denies: Hx Peritoneal Dialysis Musculoskeltal Medical History: Reports Hx Musculoskeletal Trauma Psychiatric Medical History: Reports: Hx Bipolar Disorder - and depression Infectious Medical History: Reports: Hx HIV Past Surgical History: Reports: Hx Abdominal Surgery - hernia repair x2, Hx Inguinal Hernia - Bilateral inguinal hernia - Immunizations Immunizations up to date: Yes Hx Diphtheria, Pertussis, Tetanus Vaccination: Yes History of Influenza Vaccine for 04/2017 - 09/2017 Season: No Physical Exam - Vital signs Vitals: Temp Pulse Resp BP Pulse Ox 98.7 F 79 16 123/49 L 94 09/23/18 17:30 09/23/18 17:30 09/23/18 17:30 09/23/18 17:30 09/23/18 17:30 Course - Vital Signs Vital signs: Temp Pulse Resp BP Pulse Ox 98.7 F 79 16 123/49 L 94 09/23/18 17:30 09/23/18 17:30 09/23/18 17:30 09/23/18 17:30 09/23/18 17:30 Doctor's Discharge - Discharge Referrals: [facility] [Primary Care Provider] - Follow up as needed
--- NOTE | 2018-09-23 19:29 | RADIOLOGY REPORT (SQ) ---
EXAM DESCRIPTION: CHEST 2 VIEWS COMPLETED DATE/TIME: 09/23/2018 7:16 pm REASON FOR STUDY: Shortness of breath, chest pain COMPARISON: Chest x-ray 01/15/2018, CT angiogram chest 01/13/2018. EXAM PARAMETERS: NUMBER OF VIEWS: two views TECHNIQUE: Digital Frontal and Lateral radiographic views of the chest acquired. RADIATION DOSE: NA LIMITATIONS: none FINDINGS: LUNGS AND PLEURA: Airspace opacity at the right middle lobe. No pneumothorax or pleural e ffusion. MEDIASTINUM AND HILAR STRUCTURES: No masses or contour abnormalities. HEART AND VASCULAR STRUCTURES: Heart normal size. Mild central vascular congestion. BONES: No acute findings. HARDWARE: None in the chest. IMPRESSION: Mild central vascular congestion. Airspace opacity at the right middle lobe, may repres ent asymmetric pulmonary edema or pneumonia. TECHNICAL DOCUMENTATION: JOB ID: [id number] 2010 [employer]- All Rights Reserved Reading location - IP/workstation name: [email or web address]
[2018-09-23] MEDS ORDERED: METHYLPREDNISOLONE INJ 125 MG/2 ML SDV IV ONE (20:02)
[2018-09-23 20:18] LABS: ABSOLUTE LYMPHOCYTES (AUTO) 0.9 10^3/uL (0.5-4.7); ABSOLUTE MONOCYTES (AUTO) 0.6 10^3/uL (0.1-1.4); ABSOLUTE NEUT (AUTO) 10.5 10^3/uL (1.7-8.2); BASOPHILS % (AUTO) 0.1 % (0-2); HEMATOCRIT 34.7 % (37.9-51.0); HEMOGLOBIN 11.9 g/dL (13.5-17.0); LYMPHOCYTES % (AUTO) 7.5 % (13-45); MEAN CORPUSCULAR HGB CONC 34.4 g/dL (32.0-36.0); MEAN CORPUSCULAR VOLUME 99 fl (80-97); MONOCYTES % (AUTO) 5.2 % (3-13); PLATELET COUNT 279 10^3/uL (150-450); RED BLOOD COUNT 3.51 10^6/uL (4.35-5.55); SEGMENTED NEUTROPHILS % (AUTO) 87.2 % (42-78); TOTAL CELLS COUNTED % (AUTO) 100 %
[2018-09-23 20:36] LABS: ALANINE AMINOTRANSFERASE 93 U/L (21-72); ALBUMIN 3.7 g/dL (3.5-5.0); ALKALINE PHOSPHATASE 50 U/L (38-126); ANION GAP 8 (5-19); ASPARTATE AMINO TRANSFERASE 101 U/L (17-59); BILIRUBIN,DIRECT 0.2 mg/dL (0.0-0.4); BILIRUBIN,TOTAL 0.3 mg/dL (0.2-1.3); BLOOD UREA NITROGEN 15 mg/dL (7-20); CALCIUM 9.9 mg/dL (8.4-10.2); CARBON DIOXIDE 25 mmol/L (22-30); CHLORIDE 104 mmol/L (98-107); GLUCOSE 136 mg/dL (75-110); POTASSIUM 4.5 mmol/L (3.6-5.0); SODIUM 136.9 mmol/L (137-145); TOTAL PROTEIN 5.9 g/dL (6.3-8.2)
[2018-09-23] MEDS ORDERED: NORMAL SALINE 1000 ML 1,000 ML IV ONE (20:59)
[2018-09-23] MEDS ORDERED: CEFPODOXIME 200 MG TABLET PO ONE ×2 (21:44→22:14)
[2018-09-23] MEDS ORDERED: DOXYCYCLINE HYCLATE 100 MG TABLET PO ONE (21:44)
--- NOTE | 2018-09-23 21:44 | ER Document Report ---
ED Respiratory Problem - General Chief Complaint: Shortness Of Breath Stated Complaint: DIFFICULTY BREATHING Time Seen by Provider: 09/23/18 18:44 Primary Care Provider: [facility] [NO LOCAL MD] - Follow up as needed Mode of Arrival: Ambulatory Notes: Patient is a 58-year-old male presents to the emergency department with respiratory distress. Patient states he has also had a generalized cough and congestion and intermittent chills for the last 3 days. Patient states he does have a history of HIV but is unsure of when his last cell counts were taken. States he feels as though they were done in the last 6 months and states he remembers the doctor telling him they were "good." Patient is denying any nausea, vomiting, diarrhea, abdominal pain, chest pain. Past medical history: HIV, COPD, bipolar Medications: Remeron, Lamictal, Prezcobix, Descovy Allergies: Penicillin TRAVEL OUTSIDE OF THE [place] IN LAST 30 DAYS: No - Related Data Allergies/Adverse Reactions: Penicillins Adverse Reaction (Verified 01/13/18 17:38) convulsions Past Medical History - General Information source: Patient, Relative, [facility] Records - Social History Smoking Status: Current Every Day Smoker Chew tobacco use (# tins/day): No Frequency of alcohol use: None Drug Abuse: None Family History: Arthritis, CAD, COPD, DM, Hyperlipidemia, Hypertension, Malignancy Patient has suicidal ideation: No Patient has homicidal ideation: No Pulmonary Medical History: Reports: Hx Asthma, Hx Bronchitis, Hx COPD Renal/ Medical History: Denies: Hx Peritoneal Dialysis Musculoskeletal Medical History: Reports Hx Musculoskeletal Trauma Psychiatric Medical History: Reports: Hx Bipolar Disorder - and depression Infectious Medical History: Reports: Hx HIV Past Surgical History: Reports: Hx Abdominal Surgery - hernia repair x2, Hx In guinal Hernia - Bilateral inguinal hernia - Immunizations Immunizations up to date: Yes Hx Diphtheria, Pertussis, Tetanus Vaccination: Yes Review of Systems - Review of Systems Constitutional: See HPI EENT: See HPI Cardiovascular: See HPI Respiratory: See HPI Gastrointestinal: See HPI Genitourinary: No symptoms reported Male Genitourinary: No symptoms reported Musculoskeletal: No symptoms reported Skin: No symptoms reported Hematologic/Lymphatic: No symptoms reported Neurological/Psychological: No symptoms reported Physical Exam - Vital signs Vitals: Temp Pulse Resp BP Pulse Ox 98.7 F 79 16 123/49 L 94 09/23/18 17:30 09/23/18 17:30 09/23/18 17:30 09/23/18 17:30 09/23/18 17:30 - Notes Notes: GENERAL: Alert, interacts well. No acute distress. HEAD: Normocephalic, atraumatic. EYES: Pupils equal, round, and reactive to light. Extraocular movements intact. ENT: Oral mucosa moist, tongue midline. Nares patent, TM's intact, nonerythematous, nonbulging bilaterally. Pharynx within normal limits no palatal petechiae noted NECK: Full range of motion. Supple. Trachea midline. LUNGS: Inspiratory and expiratory wheezes to auscultation bilaterally, no rales, or rhonchi heard. No respiratory distress. HEART: Regular rate and rhythm. No murmur ABDOMEN: Soft, non-tender. Non-distended. Bowel sounds present in all 4 quadrants. EXTREMITIES: Moves all 4 extremities spontaneously. No edema, normal radial and dorsalis pedis pulses bilaterally. No cyanosis. BACK: no cervical, thoracic, lumbar midline tenderness. No saddle anesthesia, normal distal neurovascular exam. NEUROLOGICAL: Alert and oriented x3. Normal speech. cranial nerves II through XII grossly intact. PSYCH: Normal affect, normal mood. SKIN: Warm, dry, normal turgor. No rashes or lesions noted. Course - Re-evaluation Re-evalutation: Patient's labs do show a slight leukocytosis of 12.0, no abnormality in patient's kidney function patient's x-ray shows pulmonary edema versus. Pneumonia in the right middle lobe. Discussed patient's history of COPD. Patient states he has never had a history of congestive heart failure, never had swelling in his legs or fluid on his lungs. Discussed with him likely diagnosis of pneumonia and due to his immunosuppressed state I will treat with antibiotics. Discussed close return precautions with patient and follow-up at primary care provider. Offered patient admission to the hospital due to his immunosuppressed state. Patient is very adamant about being discharged. Patient's oxygen saturation is stable at this time and his lung sounds do reveal significant improving, with minor expiratory wheezes noted bilateral bases. - Vital Signs Vital signs: Temp Pulse Resp BP Pulse Ox 98.4 F 79 18 109/51 L 98 09/23/18 20:08 09/23/18 17:30 09/23/18 22:02 09/23/18 22:02 09/23/18 22:02 - Laboratory Result Diagrams: 09/23/18 19:55 09/23/18 19:55 Laboratory results interpreted by me: 09/23/18 09/23/18 19:55 19:55 WBC 12.0 H RBC 3.51 L Hgb 11.9 L Hct 34.7 L MCV 99 H MCH 34.0 H Seg Neutrophils % 87.2 H Lymphocytes % 7.5 L Absolute Neutrophils 10.5 H Sodium 136.9 L Glucose 136 H AST 101 H ALT 93 H Total Protein 5.9 L Discharge - Discharge Clinical Impression: Pneumonia Qualifiers: Pneumonia type: due to unspecified organism Laterality: unspecified laterality Lung location: unspecified part of lung Qualified Code(s): J18.9 - Pneumonia, unspecified organism COPD (chronic obstructive pulmonary disease) Qualifiers: COPD type: emphysema Emphysema type: unspecified Qualified Code(s): J43.9 - Emphysema, unspecified Condition: Stable Disposition: HOME, SELF-CARE Instructions: Chronic Obstructive Lung Disease ([facility]), Pneumonia ([facility]) Additional Instructions: As we discussed you have been seen and treated in the emergency department for an exacerbation of your COPD. Your x-ray results we have also noted that you have pneumonia. Please take all antibiotics as prescribed and immediately return to the emergency room should you have any chest discomfort, tightness, increased shortness of breath or any other concerning symptoms. Please follow- up with your primary care provider in the next 24-48 hours Prescriptions: Albuterol Sulfate [Proair HFA Inhalation Aerosol 8.5 gm MDI] 2 puff IH Q4H PRN # 1 mdi PRN Reason: Cefpodoxime Proxetil [Vantin 200 mg Tablet] 1 tab PO Q12 7 Days tab Doxycycline Hyclate 100 mg PO BID #14 capsule Forms: Return to Work Referrals: [facility] [NO LOCAL MD] - Follow up as needed
--- NOTE | 2018-09-23 22:18 | EKG REPORT ---
SEVERITY:- OTHERWISE NORMAL ECG - SINUS RHYTHM BORDERLINE RIGHT AXIS DEVIATION : Confirmed by: Tracie Huitron MD 23-Sep-2018 22:17:13
[2018-09-23 22:28] VITALS: BP 109/51
== END 2018-09-23 22:35 | disposition home or self-care (01) ==
LOC: ER 17:20
DX: J18.9 Pneumonia, unspecified organism (principal); J43.9 Emphysema, unspecified; R05 Cough; R68.83 Chills (without fever); F17.200 Nicotine dependence, unspecified, uncomplicated; F31.9 Bipolar disorder, unspecified; Z21 Asymptomatic human immunodeficiency virus [HIV] infection status; Z79.899 Other long term (current) drug therapy
CPT/HCPCS: 93005; 94640 ×2; 99285; 96361; 96374; 36415; 85025; 80053; 84484; 71046; 93010; J2930; J7030; J7620

== ENCOUNTER 2019-08-23 12:07 | Emergency (ER) | payer SELFPAY ==
[2019-08-23 12:35] VITALS: BP 100/55
[2019-08-23] MEDS ORDERED: RINGERS LACTATED IV ONE (13:26)
[2019-08-23] MEDS ORDERED: ACETAMINOPHEN 325 MG TABLET PO ONE (13:26)
--- NOTE | 2019-08-23 13:29 | ER Document Report ---
ED Medical Screen (RME) - General Chief Complaint: Diarrhea Stated Complaint: WEAK,DIARRHEA,ABDOMINAL PAIN Time Seen by Provider: 08/23/19 13:25 Notes: HPI: 59-year-old male with HIV and emphysema presenting to the emergency department complaining of 4 days of worsening cough, shortness of breath, chest tightness, fever. Patient reports diarrhea started yesterday. Denies abdominal pain. Patient complains of generalized myalgia I have greeted and performed a rapid initial assessment of this patient. A comprehensive ED assessment and evaluation of the patient, analysis of test results and completion of the medical decision making process will be conducted by additional ED providers PHYSICAL EXAMINATION: GENERAL: Cachectic-appearing, well-nourished and in moderate acute distress. HEAD: Atraumatic, normocephalic. EYES: sclera anicteric, conjunctiva are normal. ENT: Moist mucous membranes. NECK: Normal range of motion LUNGS: Expiratory wheezing in all lung ward HEART: 2+ radial pulses bilaterally, mild tachycardia ABD: limited by positioning for exam in triage. EXTREMITIES: no pitting or edema. No cyanosis. NEUROLOGICAL: No focal neurological deficits. Moves all extremities spontaneously and on command. PSYCH: Normal mood, normal affect. SKIN: Warm, Dry, normal turgor, no rashes or lesions noted. TRAVEL OUTSIDE OF THE [place] IN LAST 30 DAYS: No - Related Data Allergies/Adverse Reactions: Penicillins Adverse Reaction (Verified 08/23/19 13:19) convulsions Home Medications: aspirin 325. prezcobix. descovy. mirtazapine. sertraline Past Medical History - Social History Chew tobacco use (# tins/day): No Frequency of alcohol use: None Drug Abuse: None Pulmonary Medical History: Reports: Hx Asthma, Hx Bronchitis, Hx COPD Renal/ Medical History: Denies: Hx Peritoneal Dialysis Musculoskeltal Medical History: Reports Hx Musculoskeletal Trauma Psychiatric Medical History: Reports: Hx Bipolar Disorder - and depression Infectious Medical History: Reports: Hx HIV Past Surgical History: Reports: Hx Abdominal Surgery - hernia repair x2, Hx Inguinal Hernia - Bilateral inguinal hernia - Immunizations Immunizations up to date: Yes Hx Diphtheria, Pertussis, Tetanus Vaccination: Yes Physical Exam - Vital signs Vitals: Temp Pulse Resp BP Pulse Ox 100.8 F H 95 17 100/55 L 91 L 08/23/19 12:33 08/23/19 12:33 08/23/19 12:33 08/23/19 12:33 08/23/19 12:33 Course - Vital Signs Vital signs: Temp Pulse Resp BP Pulse Ox 100.8 F H 95 17 100/55 L 91 L 08/23/19 12:33 08/23/19 12:33 08/23/19 12:33 08/23/19 12:33 08/23/19 12:33
[2019-08-23] MEDS ORDERED: METHYLPREDNISOLONE INJ 125 MG/2 ML SDV IV ONE (13:31)
[2019-08-23] MEDS ORDERED: IPRATROPIUM/ALBUTEROL 0.5-2.5 MG/3 ML AMPUL NEB ONE (13:31)
--- NOTE | 2019-08-23 13:51 | ER Document Report ---
ED General - General Chief Complaint: Diarrhea Stated Complaint: WEAK,DIARRHEA,ABDOMINAL PAIN Time Seen by Provider: 08/23/19 13:25 Notes: 59-year-old male with COPD advanced HIV presenting with fatigue cough shortness of breath generalized weakness and diarrhea for several days. Initially seen at triage and found to have abnormal vital signs. Was made a sepsis alert but due to no beds being available was kept in triage for over an hour. No ST, mild GABRIEL, no neck stiffness, photophobia or urineary sx. Drinks mostly pepsi and coffee. TRAVEL OUTSIDE OF THE [place] IN LAST 30 DAYS: No - Related Data Allergies/Adverse Reactions: Penicillins Adverse Reaction (Verified 08/23/19 13:19) convulsions Home Medications: aspirin 325. prezcobix. descovy. mirtazapine. sertraline Past Medical History - Social History Smoking Status: Current Every Day Smoker Chew tobacco use (# tins/day): No Smoking Education Provided: Yes - The patient ED visit today was directly related to their abuse of tobacco. Frequency of alcohol use: None Drug Abuse: None Family History: Arthritis, CAD, COPD, DM, Hyperlipidemia, Hypertension, Malignancy Patient has suicidal ideation: No Patient has homicidal ideation: No Pulmonary Medical History: Reports: Hx Asthma, Hx Bronchitis, Hx COPD Renal/ Medical History: Denies: Hx Peritoneal Dialysis Musculoskeletal Medical History: Reports Hx Musculoskeletal Trauma Psychiatric Medical History: Reports: Hx Bipolar Disorder - and depression Infectious Medical History: Reports: Hx HIV Past Surgical History: Reports: Hx Abdominal Surgery - hernia repair x2, Hx Inguinal Hernia - Bilateral inguinal hernia - Immunizations Immunizations up to date: Yes Hx Diphtheria, Pertussis, Tetanus Vaccination: Yes Review of Systems - Review of Systems Notes: REVIEW OF SYSTEMS GEN: General generalized weakness and fever ENT: Denies sore throat, nasal discharge, ear pain EYES: Denies blurry vision, eye pain, discharge CV: Denies chest pain, palpitations, edema RESP: Cough shortness of breath GI: Diarrhea MSK: Denies joint pain/swelling, edema, SKIN: Denies rash, skin lesions LYMPH: Denies swollen glands/lymph nodes NEURO: Denies headache, focal weakness or numbness, dizziness PSYCH: Denies depression, suicidal or homicidal ideation PHYSICAL EXAMINATION General: Chronically ill-appearing Head: Atraumatic, normocephalic ENT: Mouth normal, oropharynx moist, no exudates or tonsillar enlargement Eyes: Conjunctiva normal, pupils equal, lids normal Neck: No JVD, supple, no guarding CVS: Normal rate, regular rhythm, no murmurs Resp: Coughing diminished at both bases GI: Nondistended, soft, no tenderness to palpation, no rebound or guarding Ext: No deformities, no edema, normal range of motion in upper and lower ext Back: No CVA or midline TTP Skin: No rash, warm Lymphatic: No lymphadeopathy noted Neuro: Awake, alert. Face symmetric. GCS 15. Physical Exam - Vital signs Vitals: Temp Pulse Resp BP Pulse Ox 100.8 F H 95 17 100/55 L 91 L 08/23/19 12:33 08/23/19 12:33 08/23/19 12:08/23/19 12:08/23/19 12:33 Course - Re-evaluation Re-evalutation: 08/23/19 16:07 Patient presents with weakness cough fever and diarrhea constellation of symptoms, in the setting of wellcontrolled HIV disease and COPD with ongoing smoking. Initially looked like had sepsis. Patient actually improved in his vital signs without intervention. Triage provider ordered sepsis work-up including antibiotics which the patient is received prior to my evaluation. His x-ray is clear, has not had diarrhea in the ED, his vitals are normal at this ti me his lungs are clear his x-ray does not show pneumonia and his labs are normal including lactic acid. 08/24/19 07:42 No diarrhea in ED to send studies (CDiff, etc). VS normalized over 1 hour. Urine, other infectious e/u negative. Saturation wnl after treatment with nl wheezing, pt looks very well. 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 Will DC with f/u PMD tomorrow. Cx pending of blood. D/w pt precs, dx, f/u plan ([facility] agrees). - Vital Signs Vital signs: Temp Pulse Resp BP Pulse Ox 100.8 F H 95 17 100/55 L 97 08/23/19 12:33 08/23/19 12:33 08/23/19 12:33 08/23/19 12:33 08/23/19 15:40 - Laboratory Result Diagrams: 08/23/19 14:49 08/23/19 14:49 Laboratory results interpreted by me: 08/23/19 08/23/19 08/23/19 14:49 14:49 14:49 MCH 33.9 H RDW 14.6 H [place] % (Auto) 15.8 H Sodium 136.4 L BUN 23 H Creatinine 1.28 H Est GFR (MDRD) Non-Af 58 L Lactic Acid 0.6 L AST 60 H Urine Protein 08/23/19 15:40 MCH RDW [place] % (Auto) Sodium BUN Creatinine Est GFR (MDRD) Non-Af Lactic Acid AST Urine Protein 30 H - Diagnostic Test Radiology reviewed: Image reviewed, Reports reviewed Critical Care Note - Critical Care Note Total time excluding time spent on procedures (mins): 32 Comments: Above pt is critically ill. High risk of multisystem illness. Spent 35 mins examining, documenting, discussing with pt and family, ordering and interpreting results, aparat from any procedures. Pt is Full code. Discharge - Discharge Clinical Impression: Viral syndrome Diarrhea Qualifiers: Diarrhea type: unspecified type Qualified Code(s): R19.7 - Diarrhea, unspecified Condition: Good Disposition: HOME, SELF-CARE Instructions: Diarrhea, Nonspecific ([facility]), Viral Syndrome ([facility]) Additional Instructions: Testing today in the emergency room did not reveal any serious cause of your illness. Please follow-up with your primary care doctor tomorrow or on Tuesday, and to the ER if you get any worse any sooner Prescriptions: Oseltamivir Phosphate [Tamiflu 75 mg Capsule] 75 mg PO BID #10 capsule Forms: Return to Work
--- NOTE | 2019-08-23 14:01 | RADIOLOGY REPORT (SQ) ---
EXAM DESCRIPTION: CHEST 2 VIEWS COMPLETED DATE/TIME: 08/23/2019 12:41 pm REASON FOR STUDY: cough COMPARISON: 09/23/2018 EXAM PARAMETERS: NUMBER OF VIEWS: two views TECHNIQUE: Digital Frontal and Lateral radiographic views of the chest acquired. RADIATION DOSE: NA LIMITATIONS: none FINDINGS: LUNGS AND PLEURA: No opacities, masses or pneumothorax. No pleural effusion. MEDIASTINUM AND HILAR STRUCTURES: No masses or contour abnormalities. HEART AND VASCULAR STRUCTURES: Heart normal size. No evidence for failure. BONES: No acute findings. HARDWARE: None in the chest. OTHER: No other significant finding. IMPRESSION: NO ACUTE RADIOGRAPHIC FINDING IN THE CHEST. TECHNICAL DOCUMENTATION: JOB ID: [id number] [employer]- All Rights Reserved Reading location - IP/workstation name: [email or web address]
[2019-08-23] MEDS ORDERED: LEVOFLOXACIN 750 MG/D5W RTU 750 MG/150 ML RTUPB IV ONE (14:15)
[2019-08-23 15:13] LABS: ABSOLUTE BASOPHILS # (AUTO) 0.1 10^3/uL (0.0-0.2); ABSOLUTE LYMPHOCYTES (AUTO) 1.1 10^3/uL (0.5-4.7); ABSOLUTE NEUT (AUTO) 4.2 10^3/uL (1.7-8.2); BASOPHILS % (AUTO) 0.9 % (0-2); HEMATOCRIT 43.7 % (37.9-51.0); HEMOGLOBIN 15.3 g/dL (13.5-17.0); LYMPHOCYTES % (AUTO) 17.4 % (13-45); MEAN CORPUSCULAR HEMOGLOBIN 33.9 pg (27.0-33.4); MEAN CORPUSCULAR VOLUME 97 fl (80-97); MONOCYTES % (AUTO) 15.8 % (3-13); PLATELET COUNT 210 10^3/uL (150-450); RED BLOOD COUNT 4.51 10^6/uL (4.35-5.55); RED CELL DISTRIBUTION WIDTH 14.6 % (11.5-14.0); SEGMENTED NEUTROPHILS % (AUTO) 65.9 % (42-78); TOTAL CELLS COUNTED % (AUTO) 100 %; WHITE BLOOD COUNT 6.5 10^3/uL (4.0-10.5)
[2019-08-23 15:22] LABS: ALBUMIN 4.4 g/dL (3.5-5.0); ALKALINE PHOSPHATASE 59 U/L (38-126); ANION GAP 8 (5-19); ASPARTATE AMINO TRANSFERASE 60 U/L (17-59); BILIRUBIN,TOTAL 0.3 mg/dL (0.2-1.3); BLOOD UREA NITROGEN 23 mg/dL (7-20); CALCIUM 9.2 mg/dL (8.4-10.2); CARBON DIOXIDE 25 mmol/L (22-30); CHLORIDE 103 mmol/L (98-107); GLUCOSE 101 mg/dL (75-110); POTASSIUM 4.7 mmol/L (3.6-5.0); TOTAL PROTEIN 7.2 g/dL (6.3-8.2)
[2019-08-23 15:29] LABS: PROTHROMBIN TIME 13.2 SEC (11.4-15.4)
[2019-08-23 16:46] LABS: A TYPE INFLUENZA AG NEGATIVE (NEGATIVE); B INFLUENZA AG NEGATIVE (NEGATIVE)
[2019-08-23 16:55] LABS: APPEARANCE,URINE SLIGHTLY-CLOUDY; BILIRUBIN,URINE NEGATIVE (NEGATIVE); COLOR,URINE YELLOW; GLUCOSE, URINE NEGATIVE (NEGATIVE); KETONES,URINE NEGATIVE (NEGATIVE); PROTEIN,URINE 30 mg/dL (NEGATIVE); URINE SPECIFIC GRAVITY 1.025; UROBILINOGEN,URINE NEGATIVE mg/dL (<2.0)
== END 2019-08-23 17:00 | disposition home or self-care (01) ==
LOC: ER 12:07
DX: R19.7 Diarrhea, unspecified (principal); B34.9 Viral infection, unspecified; R53.1 Weakness; R53.83 Other fatigue; R10.9 Unspecified abdominal pain; F17.200 Nicotine dependence, unspecified, uncomplicated; J44.9 Chronic obstructive pulmonary disease, unspecified; B20 Human immunodeficiency virus [HIV] disease; Z88.0 Allergy status to penicillin
CPT/HCPCS: 36415; 87040; 83605; 85025; 85610; 80053; 81001; 84484; 87804; 71046; J2930; J7120; J1956; J7620

== ENCOUNTER 2019-09-12 16:18 | Emergency (ER) | payer SELFPAY ==
[2019-09-12] MEDS ORDERED: METHYLPREDNISOLONE INJ 125 MG/2 ML SDV IV ONE (17:43)
[2019-09-12] MEDS ORDERED: IPRATROPIUM/ALBUTEROL 0.5-2.5 MG/3 ML AMPUL NEB ONE (17:43)
--- NOTE | 2019-09-12 17:45 | ER Document Report ---
ED Medical Screen (RME) - General Chief Complaint: Shortness Of Breath Stated Complaint: DIFFICULTY BREATHING Time Seen by Provider: 09/12/19 17:36 Notes: HPI: 59-year-old male presenting for 3 days of central chest pain that is achy in nature with shortness of breath. Patient with emphysema history states this feels like a COPD flare. Is out of his albuterol at home. Patient is also HIV positive but states he has been taking his medications he has not had a fever. I have greeted and performed a rapid initial assessment of this patient. A comprehensive ED assessment and evaluation of the patient, analysis of test results and completion of the medical decision making process will be conducted by additional ED providers PHYSICAL EXAMINATION: GENERAL: Well-appearing, well-nourished and in moderate acute distress. HEAD: Atraumatic, normocephalic. EYES: sclera anicteric, conjunctiva are normal. ENT: Moist mucous membranes. NECK: Normal range of motion LUNGS: Patient with significant dyspnea and increased work of breathing. Inspiratory expiratory wheezing all lung ward. Patient becomes dyspneic with speaking HEART: 2+ radial pulses bilaterally, tachycardic ABD: limited by positioning for exam in triage. EXTREMITIES: no pitting or edema. No cyanosis. NEUROLOGICAL: No focal neurological deficits. Moves all extremities spontaneously and on command. PSYCH: Normal mood, normal affect. SKIN: Warm, Dry, normal turgor, no rashes or lesions noted. TRAVEL OUTSIDE OF THE [place] IN LAST 30 DAYS: No - Related Data Allergies/Adverse Reactions: Penicillins Adverse Reaction (Verified 08/23/19 13:19) convulsions Past Medical History - Social History Frequency of alcohol use: None Drug Abuse: None Pulmonary Medical History: Reports: Hx Asthma, Hx Bronchitis, Hx COPD Renal/ Medical History: Denies: Hx Peritoneal Dialysis Musculoskeltal Medical History: Reports Hx Musculoskeletal Trauma Psychiatric Medical History: Reports: Hx Bipolar Disorder - and depression Infectious Medical History: Reports: Hx HIV Past Surgical History: Reports: Hx Abdominal Surgery - hernia repair x2, Hx Inguinal Hernia - Bilateral inguinal hernia - Immunizations Immunizations up to date: Yes Hx Diphtheria, Pertussis, Tetanus Vaccination: Yes Physical Exam - Vital signs Vitals: Temp Pulse Resp BP Pulse Ox 98.5 F 81 24 H 138/69 H 94 09/12/19 16:28 09/12/19 16:28 09/12/19 16:28 09/12/19 16:28 09/12/19 16:28 Course - Vital Signs Vital signs: Temp Pulse Resp BP Pulse Ox 98.5 F 81 24 H 138/69 H 94 09/12/19 16:28 09/12/19 16:28 09/12/19 16:28 09/12/19 16:28 09/12/19 16:28
--- NOTE | 2019-09-12 18:09 | RADIOLOGY REPORT (SQ) ---
EXAM DESCRIPTION: CHEST SINGLE VIEW COMPLETED DATE/TIME: 09/12/2019 5:54 pm REASON FOR STUDY: SOB COMPARISON: 08/23/2019 EXAM PARAMETERS: NUMBER OF VIEWS: One view. TECHNIQUE: Single frontal radiographic view of the chest acquired. RADIATION DOSE: NA LIMITATIONS: None. FINDINGS: LUNGS AND PLEURA: No opacities, masses or pneumothorax. No pleural effusion. MEDIASTINUM AND HILAR STRUCTURES: No masses. Contour normal. HEART AND VASCULAR STRUCTURES: Heart normal in size. Normal vasculature. BONES: No acute findings. HARDWARE: None in the chest. OTHER: No other significant finding. IMPRESSION: NO ACUTE RADIOGRAPHIC FINDING IN THE CHEST. TECHNICAL DOCUMENTATION: JOB ID: [id number] 2010 [employer]- All Rights Reserved Reading location - IP/workstation name: [email or web address]
[2019-09-12 19:07] LABS: APPEARANCE,URINE CLEAR; BILIRUBIN,URINE NEGATIVE (NEGATIVE); COLOR,URINE STRAW; GLUCOSE, URINE NEGATIVE (NEGATIVE); KETONES,URINE NEGATIVE (NEGATIVE); LEUKOCYTE ESTERASE,URINE NEGATIVE (NEGATIVE); NITRITE,URINE NEGATIVE (NEGATIVE); PROTEIN,URINE NEGATIVE (NEGATIVE); UROBILINOGEN,URINE NEGATIVE mg/dL (<2.0)
[2019-09-12 19:57] LABS: ABSOLUTE LYMPHOCYTES (AUTO) 1.3 10^3/uL (0.5-4.7); ABSOLUTE MONOCYTES (AUTO) 0.9 10^3/uL (0.1-1.4); ABSOLUTE NEUT (AUTO) 7.8 10^3/uL (1.7-8.2); BASOPHILS % (AUTO) 0.4 % (0-2); HEMATOCRIT 40.3 % (37.9-51.0); MEAN CORPUSCULAR HEMOGLOBIN 34.2 pg (27.0-33.4); MEAN CORPUSCULAR HGB CONC 34.8 g/dL (32.0-36.0); MEAN CORPUSCULAR VOLUME 98 fl (80-97); MONOCYTES % (AUTO) 8.6 % (3-13); PLATELET COUNT 242 10^3/uL (150-450); RED BLOOD COUNT 4.09 10^6/uL (4.35-5.55); RED CELL DISTRIBUTION WIDTH 15.3 % (11.5-14.0); TOTAL CELLS COUNTED % (AUTO) 100 %
[2019-09-12 20:04] LABS: ALKALINE PHOSPHATASE 67 U/L (38-126); ANION GAP 8 (5-19); ASPARTATE AMINO TRANSFERASE 52 U/L (17-59); BILIRUBIN,DIRECT 0.4 mg/dL (0.0-0.4); BILIRUBIN,TOTAL 0.4 mg/dL (0.2-1.3); BLOOD UREA NITROGEN 32 mg/dL (7-20); CALCIUM 9.5 mg/dL (8.4-10.2); CARBON DIOXIDE 25 mmol/L (22-30); CHLORIDE 100 mmol/L (98-107); GLUCOSE 99 mg/dL (75-110); POTASSIUM 4.8 mmol/L (3.6-5.0); TOTAL PROTEIN 6.7 g/dL (6.3-8.2)
[2019-09-12 20:15] LABS: NT PRO BNP 196 pg/mL (<125)
[2019-09-12 20:20] LABS: TROPONIN I < 0.012 ng/mL
[2019-09-12 21:37] VITALS: BP 122/76
--- NOTE | 2019-09-12 21:46 | ER Document Report ---
ED General - General Chief Complaint: Shortness Of Breath Stated Complaint: DIFFICULTY BREATHING Time Seen by Provider: 09/12/19 17:36 TRAVEL OUTSIDE OF THE [place] IN LAST 30 DAYS: No - HPI Notes: 59-year-old male 1 pack/day cigarette smoker with prior history of COPD currently on no medications and without a primary care doctor now presenting with several days history of increased cough with production of some clear to white sputum without hemoptysis, fever or chills. He has some dyspnea upon exertion. No chest pain. - Related Data Allergies/Adverse Reactions: Penicillins Adverse Reaction (Verified 08/23/19 13:19) convulsions Past Medical History - General Information source: Patient, Relative - Social History Smoking Status: Current Every Day Smoker Frequency of alcohol use: None Drug Abuse: None Family History: Arthritis, CAD, COPD, DM, Hyperlipidemia, Hypertension, Malignancy Patient has suicidal ideation: No Patient has homicidal ideation: No Pulmonary Medical History: Reports: Hx Asthma, Hx Bronchitis, Hx COPD Renal/ Medical History: Denies: Hx Peritoneal Dialysis Musculoskeletal Medical History: Reports Hx Musculoskeletal Trauma Psychiatric Medical History: Reports: Hx Bipolar Disorder - and depression Infectious Medical History: Reports: Hx HIV Past Surgical History: Reports: Hx Abdominal Surgery - hernia repair x2, Hx Inguinal Hernia - Bilateral inguinal hernia - Immunizations Immunizations up to date: Yes Hx Diphtheria, Pertussis, Tetanus Vaccination: Yes Review of Systems - Review of Systems Notes: Constitutional: Negative for fever. HENT: Negative for sore throat. Eyes: Negative for visual changes. Cardiovascular: Negative for chest pain. Respiratory: As per HPI. Gastrointestinal: Negative for abdominal pain, vomiting or diarrhea. Genitourinary: Negative for dysuria. Musculoskeletal: Negative for back pain. Skin: Negative for rash. Neurological: Negative for headaches, weakness or numbness. 10 point ROS negative except as marked above and in HPI. Physical Exam - Vital signs Vitals: Temp Pulse Resp BP Pulse Ox 98.5 F 81 24 H 138/69 H 94 09/12/19 16:28 09/12/19 16:28 09/12/19 16:28 09/12/19 16:28 09/12/19 16:28 - Notes Notes: GENERAL: Slender male appearing approximately stated age currently in no distress. SKIN: Good turgor no rashes. HEAD: Normocephalic atraumatic. EYES: PERRLA. EOMI. Conjunctivae and sclerae clear. EARS: CANALS AND TMS CLEAR. NOSE: CLEAR. MOUTH: Moist mucosa. Good dentition. No stridor or edema. No drooling. NECK: Supple. No masses or thyromegaly. No adenopathy. Carotids 2+ without bruits. No JVD. BACK: Symmetrical without tenderness. CHEST: Respirations unlabored. Faint end expiratory wheezes bilaterally. HEART: Regular rhythm. No murmur gallop or rub. ABDOMEN: Soft nontender without masses, organomegaly or rebound. Bowel sounds normally active. No bruits. GENITALIA: Deferred. EXTREMITIES: No edema. No calf tenderness. Cap refill less than 1.5 seconds. Dorsalis pedis and posterior tibial pulses 3+ and symmetrical. NEUROLOGICAL: GCS 15. Alert and oriented x3. Normal gait. Fluent speech. C ranial nerves II through XII intact. Sensorimotor and cerebellar normal. Normal tone. PSYCHIATRIC: Appropriate affect. Course - Re-evaluation Re-evalutation: 09/12/19 21:45 Patient had been seen by midlevel provider prior to my initial encounter. They had already given the patient DuoNeb treatment and IV Solu-Medrol. Patient is currently oxygenating 98% on room air and looks and feels much better. He appears stable for outpatient management. Strongly encouraged him to stop smoking. I will refer him back to her primary care provider as well. - Vital Signs Vital signs: Temp Pulse Resp BP Pulse Ox 97.9 F 65 20 122/76 96 09/12/19 21:09 09/12/19 19:35 09/12/19 21:00 09/12/19 20:01 09/12/19 21:00 - Laboratory Result Diagrams: 09/12/19 19:10 09/12/19 19:10 Laboratory results interpreted by me: 09/12/19 09/12/19 09/12/19 19:10 19:10 19:10 RBC 4.09 L MCV 98 H MCH 34.2 H RDW 15.3 H Sodium 133.4 L BUN 32 H ALT 51 H NT-Pro-B Natriuret Pep 196 H - Diagnostic Test Radiology reviewed: Reports reviewed - No active disease per radiologist. - EKG Interpretation by Me Additional EKG results interpreted by me: 09/12/19 21:44 Twelve-lead EKG from 1936 reviewed by me contemporaneously demonstrating normal sinus rhythm with a rate of 58 and occasional PVCs. Nonspecific T waves present. Normal axis and intervals. Discharge - Discharge Clinical Impression: Acute exacerbation of chronic obstructive pulmonary disease (COPD) Condition: Stable Disposition: HOME, SELF-CARE Additional Instructions: Return here as needed for new or worsening symptoms: Pain that is worsening or unimproved Uncontrolled vomiting High fever or shaking chills Overall worsening Prescriptions: Prednisone [Deltasone 20 mg Tablet] 2 tab PO DAILY 5 Days tablet Doxycycline Monohydrate 100 mg PO BID #20 capsule Albuterol Sulfate [Proair HFA Inhalation Aerosol 8.5 gm MDI] 2 puff IH Q4H PRN #1 mdi PRN Reason: Forms: Smoking Cessation Education Referrals: [facility] [Provider Group] - Follow up as needed
--- NOTE | 2019-09-12 22:57 | EKG REPORT ---
SEVERITY:- ABNORMAL ECG - SINUS RHYTHM VENTRICULAR PREMATURE COMPLEX NONSPECIFIC T ABNORMALITIES, ANT-LAT LEADS : Confirmed by: Tracie Huitron MD 12-Sep-2019 22:56:45
== END 2019-09-12 21:56 | disposition home or self-care (01) ==
LOC: ER 16:18
DX: J44.1 Chronic obstructive pulmonary disease with (acute) exacerbation (principal); R06.02 Shortness of breath; R05 Cough; R06.00 Dyspnea, unspecified; F17.210 Nicotine dependence, cigarettes, uncomplicated
CPT/HCPCS: 93005; 94640; 99285; 96374; 36415; 85025; 80053; 81001; 84484; 83880; 71045; 93010; J2930; J7620

== ENCOUNTER 2020-07-19 13:10 | Emergency (ER) | payer SELFPAY ==
[2020-07-19 13:43] VITALS: BP 117/58
--- NOTE | 2020-07-19 14:54 | ER Document Report ---
HPI - HPI Time Seen by Provider: 07/19/20 13:42 Pain Level: 2 Notes: 60-year-old male patient presented to the emergency department concern for laceration to his right index finger. Patient reports he was at work using a slicer when this occurred. He states the slicer was clean. He believes his tetanus is up-to-date. A family member, patient's stepdaughter called stating that she was concerned about patient, felt that he may be suicidal. Apparently patient's approximately 2 weeks ago of Covid. Apparently there is financial issues and the patient's has not had her burial or cremation taking care of. Patient's daughter made statements to nurse that the patient has not answered anyone's phone calls. We addressed this with the patient, he denied any suicidal thoughts, states he has been isolating himself but has been going to work every day to earn the money to handle his 's final expenses. - REPRODUCTIVE Reproductive: DENIES: : Past Medical History - General Information source: Patient - Social History Smoking Status: Current Every Day Smoker Family History: Arthritis, CAD, COPD, DM, Hyperlipidemia, Hypertension, Malignancy Pulmonary Medical History: Reports: Hx Asthma, Hx Bronchitis, Hx COPD Renal/ Medical History: Denies: Hx Peritoneal Dialysis Musculoskeletal Medical History: Reports Hx Musculoskeletal Trauma Psychiatric Medical History: Reports: Hx Bipolar Disorder - and depression Infectious Medical History: Reports: Hx HIV Past Surgical History: Reports: Hx Abdominal Surgery - hernia repair x2, Hx Inguinal Hernia - Bilateral inguinal hernia - Immunizations Immunizations up to date: Yes Hx Diphtheria, Pertussis, Tetanus Vaccination: Yes Vertical Provider Document - CONSTITUTIONAL Notes: PHYSICAL EXAMINATION: GENERAL: Well-appearing, well-nourished and in no acute distress. HEAD: Atraumatic, normocephalic. EYES: Pupils equal round extraocular movements intact, conjunctiva are normal. ENT: Nares patent NECK: Normal range of motion LUNGS: No respiratory distress Musculoskeletal: Normal range of motion NEUROLOGICAL: Normal speech, normal gait. PSYCH: Normal mood, normal affect. SKIN: 1 cm laceration noted to right index finger. Approximates well. - INFECTION CONTROL TRAVEL OUTSIDE OF THE [place] IN LAST 30 DAYS: No Course - Re-evaluation Re-evalutation: Mental health did come and speak with the patient per my request. Patient recently lost his , a family member called the nursing line service supervisor actually looking to see if the patient was in the morgue as she had not heard from him and was concerned he may have killed himself. The patient adamantly denies any suicidal thoughts, states he has been isolating himself due to depression from his 's passing but that he would not hurt himself and that he does have outpatient resources. The patient did agree to speak with Johnathan our mental health provider. Laceration was repaired with Dermabond. Patient discharged home. - Vital Signs Vital signs: Temp Pulse Resp BP Pulse Ox 98.2 F 68 20 117/58 L 96 07/19/20 13:41 07/19/20 13:41 07/19/20 13:41 07/19/20 13:41 07/19/20 13:41 - Laboratory Results Critical Laboratory Results Reviewed: No Critical Results - Radiology Results Critical Radiology Results Reviewed: No Critical Results Procedures - Laceration/Wound Repair Right index finger Wound length (cm): 1 Wound's Depth, Shape: Superficial Laceration pre-procedure: Sterile PPE donned Wound Repaired With: Dermabond Discharge - Discharge Clinical Impression: Finger laceration Qualifiers: Encounter type: initial encounter Finger: unspecified finger Damage to nail status: unspecified Foreign body presence: unspecified Laterality: right Qualified Code(s): S61.219A - Laceration without foreign body of unspecified finger without damage to nail, initial encounter Condition: Stable Disposition: HOME, SELF-CARE Additional Instructions: Dermabond (Skin Adhesive Closure) Skin adhesive (such as Dermabond) is a quick-drying glue that remains slightly flexible while it holds wound edges together. It can substitute for stitches on some cuts. The film will usually fall off the skin after 5 to 10 days. Keep the wound area clean and dry. Do not soak or scrub the wound. Don't swim. You can shower briefly after 24 hours. Gently blot the area dry with a soft towel. Don't apply ointments. If there is a dressing, change it immediately if it gets wet. Do not place tape directly over the adhesive film, because the tape may pull the film off your skin as you remove it. Don't bump the wound area. If there's risk of injury, keep the area well- padded. Avoid stretching of the skin. Do not scratch or pick at the adhesive film. Avoid prolonged exposure to sunlight or tanning lamps. Return if there is increasing pain, swelling, redness, or drainage, or if the wound edges seem to open or separate. Forms: Return to Work
== END 2020-07-19 14:56 | disposition home or self-care (01) ==
LOC: ER 13:10
DX: S61.210A Laceration without foreign body of right index finger without damage to nail, initial encounter (principal); W26.8XXA Contact with other sharp object(s), not elsewhere classified, initial encounter; Y93.89 Activity, other specified; Y99.0 Civilian activity done for income or pay; F17.200 Nicotine dependence, unspecified, uncomplicated; J44.9 Chronic obstructive pulmonary disease, unspecified; Z21 Asymptomatic human immunodeficiency virus [HIV] infection status; Z63.4 Disappearance and death of family member
CPT/HCPCS: 99282